=== PATIENT | male | born 1995 | race African-American/Black ===

== ENCOUNTER 2019-02-11 10:00 | Inpatient (IN) | payer OTHER ==
[~2019-02-11] VITALS: Ht 190.5 cm; Wt 86.2 kg
[2019-02-11 12:03] LABS: BASO % 1 % (0-3); EOS # 0.1 x10^3/uL (0.0-0.7); EOS % 2 % (0-3); HEMATOCRIT 44.2 % (39.0-53.0); HEMOGLOBIN 15.2 g/dL (13.0-17.5); LYMPH # 1.4 x10^3/uL (1.0-4.8); LYMPH % 37 % (24-48); MEAN CORPUSCULAR HEMOGLOBIN 29 pg (25-35); MEAN CORPUSCULAR HGB CONC 34 g/dL (31-37); MEAN CORPUSCULAR VOLUME 86 fL (79-100); MONO # 0.4 x10^3/uL (0.0-1.1); MONO % 10 % (0-9); NEUT # 1.9 x10^3/uL (1.8-7.7); NEUT % 51 % (31-73); PLATELET COUNT 164 x10^3/uL (140-400); RED BLOOD COUNT 5.16 x10^6/uL (4.30-5.70); RED CELL DISTRIBUTION WIDTH 13.6 % (11.5-14.5); WHITE BLOOD COUNT 3.8 x10^3/uL (4.0-11.0)
[2019-02-11 12:27] LABS: CALCIUM 9.2 mg/dL (8.5-10.1); CREATININE 1.2 mg/dL (0.7-1.3); GFR 89.3
--- NOTE | 2019-02-11 12:58 | RAD ---
Bilateral upper extremity venous duplex study 02/11/2019 11:24 AM Clinical History: Bilateral upper extremity pain Comparison: None Technique: Using a combination of real time ultrasound imaging and color-flow and pulse Doppler imaging techniques along with graded compression and augmentation, duplex evaluation of the deep venous system of the both upper extremities was performed. Multiple images were obtained. Findings: There is no sonographic evidence of deep venous thrombosis involving the visualized deep venous structures of either upper extremity. Impression: No evidence of deep venous thrombosis involving either upper extremity Electronically signed by: Reinaldo Diallo MD (02/11/2019 12:55 PM) [facility]
--- NOTE | 2019-02-11 13:30 | PHYS DOC ---
Past Medical History Past Medical History: No Pertinent History Past Surgical History: No Surgical History Alcohol Use: None Drug Use: None Adult General Chief Complaint Chief Complaint: UPPER EXTREMITY SWELLING HPI HPI Patient is a 23 year old medical no significant medical history who presents to the ED today complaining of 8 out of 10 bilateral biceps pain, describes the pain as soreness, symptoms began on Saturday after doing a one half hour workout including weights. Patient denies any trauma. He states he was seen at urgent care today and they requested he comes to the ED today for rhabdomyolysis rule out. He states he has not been in the gym for a long time. Review of Systems Review of Systems Constitutional: Denies fever or chills [] Eyes: Denies change in visual acuity, redness, or eye pain [] HENT: Denies nasal congestion or sore throat [] Respiratory: Denies cough or shortness of breath [] Cardiovascular: No additional information not addressed in HPI [] GI: Denies abdominal pain, nausea, vomiting, bloody stools or diarrhea [] : Denies dysuria or hematuria [] Musculoskeletal: Reports bilateral biceps swelling and pain. Integument: Denies rash or skin lesions [] Neurologic: Denies headache, focal weakness or sensory changes [] All other systems were reviewed and found to be within normal limits, except as documented in this note. Current Medications Current Medications Allergies Allergies Allergies Coded Allergies Type Severity Reaction Last Updated Verified No Known Drug Allergies 09/15/15 No Physical Exam Physical Exam Constitutional: Well developed, well nourished, no acute distress, non-toxic appearance. [] HENT: Normocephalic, atraumatic, bilateral external ears normal, oropharynx moist, no oral exudates, nose normal. [] Eyes: PERRLA, EOMI, conjunctiva normal, no discharge. [] Neck: Normal range of motion, no tenderness, supple, no stridor. [] Cardiovascular:Heart rate regular rhythm, no murmur [] Lungs & Thorax: Bilateral breath sounds clear to auscultation [] Abdomen: Bowel sounds normal, soft, no tenderness, no masses, no pulsatile masses. [] Skin: Warm, dry, no erythema, no rash. [] Back: No tenderness, no CVA tenderness. [] Extremities: Bilateral biceps appear muscled. Tenderness on biceps. ROM intact, adequate radial, medial, ulnar sensation to bilateral upper extremities. +2 bilateral radial pulses. Cap refill less than 2 seconds to bilateral UE. Neurologic: Alert and oriented X 3, normal motor function, normal sensory function, no focal deficits noted. [] Psychologic: Affect normal, judgement normal, mood normal. [] Current Patient Data Vital Signs Vital Signs Date Time Temp Pulse Resp B/P (MAP) Pulse Ox O2 Delivery O2 Flow Rate FiO2 02/11/19 10:41 97.9 65 20 141/99 (113) 98 Room Air 97.9 Lab Values Laboratory Tests Test 02/11/19 11:52 White Blood Count 3.8 x10^3/uL (4.0-11.0) L Red Blood Count 5.16 x10^6/uL (4.30-5.70) Hemoglobin 15.2 g/dL (13.0-17.5) Hematocrit 44.2 % (39.0-53.0) Mean Corpuscular Volume 86 fL (79-100) Mean Corpuscular Hemoglobin 29 pg (25-35) Mean Corpuscular Hemoglobin Concent 34 g/dL (31-37) Red Cell Distribution Width 13.6 % (11.5-14.5) Platelet Count 164 x10^3/uL (140-400) Neutrophils (%) (Auto) 51 % (31-73) Lymphocytes (%) (Auto) 37 % (24-48) Monocytes (%) (Auto) 10 % (0-9) H Eosinophils (%) (Auto) 2 % (0-3) Basophils (%) (Auto) 1 % (0-3) Neutrophils # (Auto) 1.9 x10^3/uL (1.8-7.7) Lymphocytes # (Auto) 1.4 x10^3/uL (1.0-4.8) Monocytes # (Auto) 0.4 x10^3/uL (0.0-1.1) Eosinophils # (Auto) 0.1 x10^3/uL (0.0-0.7) Basophils # (Auto) 0.0 x10^3/uL (0.0-0.2) Sodium Level 140 mmol/L (136-145) Potassium Level 4.0 mmol/L (3.5-5.1) Chloride Level 103 mmol/L (98-107) Carbon Dioxide Level 28 mmol/L (21-32) Anion Gap 9 (6-14) Blood Urea Nitrogen 14 mg/dL (8-26) Creatinine 1.2 mg/dL (0.7-1.3) Estimated GFR (Cockcroft-Gault) 89.3 Glucose Level 89 mg/dL (70-99) Calcium Level 9.2 mg/dL (8.5-10.1) Creatine Kinase 62718 U/L (39-308) H Creatine Kinase MB (Mass) 143.1 ng/mL (0.0-3.6) H Creatine Kinase MB Relative Index 0.2 % (0-4) Laboratory Tests 02/11/19 11:52 Laboratory Tests 02/11/19 11:52 EKG EKG [] Radiology/Procedures Radiology/Procedures []PROCEDURE: VENOUS UPPER EXT BILATERAL Bilateral upper extremity venous duplex study 02/11/2019 11:24 AM Clinical History: Bilateral upper extremity pain Comparison: None Technique: Using a combination of real time ultrasound imaging and color-flow and pulse Doppler imaging techniques along with graded compression and augmentation, duplex evaluation of the deep venous system of the both upper extremities was performed. Multiple images were obtained. Findings: There is no sonographic evidence of deep venous thrombosis involving the visualized deep venous structures of either upper extremity. Impression: No evidence of deep venous thrombosis involving either upper extremity Electronically signed by: Reinaldo Cox MD (02/11/2019 12:55 PM) [facility] DICTATED and SIGNED BY: REINALDO COX MD DATE: 02/11/19 7012 Course & Med Decision Making Course & Med Decision Making Pertinent Labs and Imaging studies reviewed. (See chart for details) This is a 23-year-old male patient who presents to the ED today complaining of bilateral biceps pain that began on Saturday after doing a workup cessation. Patient was sent to the ED for rhabdomyolysis rule out. CBC with a WBC of 3.8, BMP with no acute findings, CK 91,555. Patient was started on 2 L of IV fluid in the ED. More IV fluids ordered for admission. Nephrology routine consult placed, we called them in the ED with no response. Consulted with Dr. Silva who accepted patient for admission Lia Disclaimer Dragon Disclaimer This electronic medical record was generated, in whole or in part, using a voice recognition dictation system. Departure Departure Impression: Primary Impression: Rhabdomyolysis Disposition: ADMITTED INPATIENT Condition: STABLE Referrals: MAGI GRAYSON MD (PCP) Problem Qualifiers Primary Impression: Rhabdomyolysis Rhabdomyolysis type: non-traumatic Qualified Codes: M62.82 - Rhabdomyolysis TINA MAURER RULING MACHINE FEEDER Feb 11, 2019 13:30
[2019-02-11] MEDS ORDERED: IV NORMAL SALINE 1000ML BAG 1,000 ML IV ONE ×3 (14:00→15:00)
[2019-02-11] MEDS: IV NORMAL SALINE 1000ML BAG 1,000 ML IV SCH ×2 (14:30→22:59)
[2019-02-11] MEDS ORDERED: ONDANSETRON PF 4 MG/2 ML VIAL. IV PRN (14:30)
[2019-02-11] MEDS ORDERED: ACETAMINOPHEN 325 MG TABLET. PO PRN (14:30)
--- NOTE | 2019-02-11 14:47 | NUR ---
The patient, ROSALBA BLACK, 23 y/o, M admitted by CLAY PIERRE III, DO, was given written information regarding hospital policies, unit procedures and contact persons. Valuables were checked and were left in room. VSS . No c/o pain at this time. Family at bedside. Pt refused to leave contact name and number. Will await for rounding docs.
--- NOTE | 2019-02-11 15:23 | HP ---
ADMIT DATE: 02/11/2019 CHIEF COMPLAINT: Muscle weakness, upper extremity swelling. HISTORY OF PRESENT ILLNESS: The patient is a pleasant, healthy young man who presented with upper extremity swelling and muscle weakness. While in the ER, we did a CPK level. He seems to be in rhabdomyolysis with a CPK level of 91,555. I discussed the case with ER physician. We are going to admit the patient and give him IV fluids and consult Nephrology. PAST MEDICAL HISTORY: Benign. ALLERGIES: None. FAMILY HISTORY: Hypertension. SOCIAL HISTORY: Does not drink, smoke or take drugs. MEDICATIONS: Reviewed, please refer to the MRAD. REVIEW OF SYSTEMS: GENERAL: No history of weight change, weakness or fevers. SKIN: No bruising, hair changes or rashes. EYES: No blurred, double or loss of vision. NOSE AND THROAT: No history of nosebleeds, hoarseness or sore throat. HEART: No history of palpitations, chest pain or shortness of breath on exertion. LUNGS: Denies cough, hemoptysis, wheezing or shortness of breath. GASTROINTESTINAL: Denies changes in appetite, nausea, vomiting, diarrhea or constipation. GENITOURINARY: No history of frequency, urgency, hesitancy or nocturia. NEUROLOGIC: Denies history of numbness, tingling, tremor or weakness. PSYCHIATRIC: No history of panic, anxiety or depression. ENDOCRINE: No history of heat or cold intolerance, polyuria or polydipsia. EXTREMITIES: He complains arm swelling. MUSCULOSKELETAL: He complains of weakness. PHYSICAL EXAMINATION: VITALS: Within normal limits and are stable. GENERAL: No apparent distress. Alert and oriented. HEENT: Head is normocephalic, atraumatic, pupils were equally round and reactive to light and accommodation. NECK: Supple, no JVD, no thyromegaly was noted. LUNGS: Clear to auscultation in all lung hester without rhonchi or wheezing. HEART: RRR, S1, S2 present. Peripheral pulses intact, no obvious murmurs were noted. ABDOMEN: Soft, nontender. Positive bowel sounds no organomegaly, normal bowel sounds. EXTREMITIES: Without any cyanosis, clubbing, or edema. Pedal pulses intact, Homans sign is negative. NEUROLOGIC: Normal speech, normal tone. A & O x3, moves all extremities, no obvious focal deficits. PSYCHIATRIC: Normal affect, normal mood. Stable. SKIN: He has multiple tattoos. VASCULAR: Good capillary refill, neurovascular bundle appears to be intact. [place]: [place] [address]. ASSESSMENT AND PLAN: Rhabdomyolysis. The patient will be admitted. We will give him IV fluids. Consult Nephrology. Check a drug screen, home meds, DVT prophylaxis. CLAY PIERRE DO DR: TRICE/skye JOB#: [id number] / [id number]
[2019-02-11 16:04] VITALS: BP 175/104
[2019-02-11] MEDS: amLODIPine BESYLATE 10 MG TABLET PO SCH (16:39)
[2019-02-11 17:38] LABS: AMPHETAMINE/METHAMPHETAMINE NEG (NEG); BARBITURATES NEG (NEG); BENZODIAZEPINES NEG (NEG); CANNABINOIDS NEG (NEG); COCAINE NEG (NEG); METHADONE NEG (NEG); OPIATES NEG (NEG); PHENCYCLIDINE NEG (NEG)
[2019-02-11 19:00] VITALS: BP 161/89
[2019-02-11 23:00] VITALS: BP 138/76
[2019-02-12 03:00] VITALS: BP 131/77
[2019-02-12 04:09] LABS: BASO % 1 % (0-3); EOS # 0.1 x10^3/uL (0.0-0.7); EOS % 3 % (0-3); HEMATOCRIT 39.5 % (39.0-53.0); HEMOGLOBIN 13.4 g/dL (13.0-17.5); LYMPH # 1.6 x10^3/uL (1.0-4.8); LYMPH % 47 % (24-48); MEAN CORPUSCULAR HEMOGLOBIN 29 pg (25-35); MEAN CORPUSCULAR HGB CONC 34 g/dL (31-37); MEAN CORPUSCULAR VOLUME 86 fL (79-100); MONO # 0.5 x10^3/uL (0.0-1.1); MONO % 14 % (0-9); NEUT # 1.3 x10^3/uL (1.8-7.7); NEUT % 36 % (31-73); PLATELET COUNT 136 x10^3/uL (140-400); RED CELL DISTRIBUTION WIDTH 13.7 % (11.5-14.5); WHITE BLOOD COUNT 3.5 x10^3/uL (4.0-11.0)
[2019-02-12 04:30] LABS: ALBUMIN 3.1 g/dL (3.4-5.0); ALBUMIN/GLOBULIN RATIO 0.9 (1.0-1.7); CALCIUM 8.1 mg/dL (8.5-10.1); CREATININE 1.2 mg/dL (0.7-1.3); GFR 89.3; POTASSIUM 3.8 mmol/L (3.5-5.1); TOTAL BILIRUBIN 0.6 mg/dL (0.2-1.0); TOTAL PROTEIN 6.6 g/dL (6.4-8.2)
[2019-02-12] MEDS: IV NORMAL SALINE 1000ML BAG 1,000 ML IV SCH ×3 (06:29→22:07)
[2019-02-12 07:00] VITALS: BP 137/90
[2019-02-12] MEDS: amLODIPine BESYLATE 10 MG TABLET PO SCH (08:43)
[2019-02-12] MEDS ORDERED: amLODIPine BESYLATE 10 MG TABLET PO SCH (09:00)
[2019-02-12] MEDS ORDERED: cloNIDine HCL 0.1 MG TABLET PO PRN (09:15)
[2019-02-12] MEDS ORDERED: ONDANSETRON PF 4 MG/2 ML VIAL. IV PRN (09:15)
[2019-02-12] MEDS ORDERED: diphenhydrAMINE HCL 25 MG CAPSULE PO PRN (09:15)
[2019-02-12 11:00] VITALS: BP 156/97
--- NOTE | 2019-02-12 11:37 | PDOC2 ---
CONSULT Date of Consult Date of Consult DATE: 02/12/19 TIME: 11:24 Identification/Chief Complaint Chief Complaint " I thought I tore my Biceps as they were hurting" Source Source: Chart review, Patient History of Present Illness Reason for Visit: Patient is a 23 year old male with no significant medical history who presents to the ED complaining of 8 out of 10 bilateral biceps pain, describes the pain as soreness He reports symptoms began on Saturday after doing a one half hour workout including weights. Patient denies any trauma. He states he restarted going to the gym after 3-4 months. He reports good fluid intake. He seda take couple of Ibuprofen for 2 days for the pain. He denies any Creatine/Protein shakes. Denies recreational drug use or excess etoh . Denies any Urinary complaints, states no one told him to save the urine last night but had good UOP . No N/V/D . No CP or SOA Current Problem List Problem List Problems Medical Problems: (1) Rhabdomyolysis Status: Acute Current Medications Current Medications Current Medications Sodium Chloride 1,000 ml @ 1,000 mls/hr 1X ONCE IV Last administered on 02/11/19at 13:52; Start 02/11/19 at 14:00; Stop 02/11/19 at 14:59; Status DC Sodium Chloride 1,000 ml @ 1,000 mls/hr 1X ONCE IV Last administered on 02/11/19at 15:00; Start 02/11/19 at 15:00; Stop 02/11/19 at 15:59; Status DC Ondansetron HCl (Zofran) 4 mg PRN Q8HRS PRN IV NAUSEA/VOMITING; Start 02/11/19 at 14:30; Stop 02/12/19 at 09:11; Status DC Acetaminophen (Tylenol) 650 mg PRN Q4HRS PRN PO FEVER; Start 02/11/19 at 14:30; Stop 02/12/19 at 14:29 Sodium Chloride 1,000 ml @ 1,000 mls/hr 1X ONCE IV Last administered on 02/11/19at 14:30; Start 02/11/19 at 14:30; Stop 02/11/19 at 15:29; Status DC Sodium Chloride 1,000 ml @ 150 mls/hr Q6H40M IV Last administered on 8/1/19at 06:29; Start 02/11/19 at 14:30 Amlodipine Besylate (Norvasc) 10 mg DAILY PO ; Start 02/12/19 at 09:00; Stop 02/12/19 at 09:00; Status DC Amlodipine Besylate (Norvasc) 10 mg DAILY PO Last administered on 02/12/19at 08:43; Start 02/11/19 at 16:45 Ondansetron HCl (Zofran) 4 mg PRN Q6HRS PRN IV NAUSEA/VOMITING; Start 02/12/19 at 09:15 Clonidine HCl (Catapres) 0.1 mg PRN Q1HR PRN PO HYPERTENSION; Start 02/12/19 at 09:15 Diphenhydramine HCl (Benadryl) 25 mg PRN QHS PRN PO INSOMNIA; Start 02/12/19 at 09:15 Active Scripts Active Reported No Known Medications Prior To Admisstion (Info) Each 1 Each MC 1X Allergies Allergies: Coded Allergies: No Known Drug Allergies (Unverified , 09/15/15) ROS Review of System Per HPI Physical Exam Physical Exam GENERAL: No apparent distress. HEENT: OM moist NECK: Supple LUNGS: Clear to auscultation HEART: RRR, S1, S2 present. ABDOMEN: Soft, nontender EXTREMITIES: Without edema. NEURO: grossly normal SKIN: He has multiple tattoos No Devries Vital Signs Vital Signs Date Time Temp Pulse Resp B/P (MAP) Pulse Ox O2 Delivery O2 Flow Rate FiO2 02/12/19 08:43 68 137/90 02/12/19 07:00 97.8 18 98 Room Air 97.8 Assessment & Plan Rhabdomyolysis - Etiology as above , continue IVF, increase rate to 200 ml/hr No UOP has been recorded since admission Strict I/O , Supportive care, avoid nephrotoxins Renal Function Cr 1.2 - may be his baseline Monitor Mid Hypocalcemia- except with rhabdo No indication for replacement currently Transaminitis- LFT's elevated Per primary Discussed A/P with Pt and RN Labs Labs Laboratory Tests Test 02/11/19 11:52 02/11/19 17:16 02/12/19 03:35 White Blood Count 3.8 x10^3/uL (4.0-11.0) 3.5 x10^3/uL (4.0-11.0) Red Blood Count 5.16 x10^6/uL (4.30-5.70) 4.60 x10^6/uL (4.30-5.70) Hemoglobin 15.2 g/dL (13.0-17.5) 13.4 g/dL (13.0-17.5) Hematocrit 44.2 % (39.0-53.0) 39.5 % (39.0-53.0) Mean Corpuscular Volume 86 fL (79-100) 86 fL (79-100) Mean Corpuscular Hemoglobin 29 pg (25-35) 29 pg (25-35) Mean Corpuscular Hemoglobin Concent 34 g/dL (31-37) 34 g/dL (31-37) Red Cell Distribution Width 13.6 % (11.5-14.5) 13.7 % (11.5-14.5) Platelet Count 164 x10^3/uL (140-400) 136 x10^3/uL (140-400) Neutrophils (%) (Auto) 51 % (31-73) 36 % (31-73) Lymphocytes (%) (Auto) 37 % (24-48) 47 % (24-48) Monocytes (%) (Auto) 10 % (0-9) 14 % (0-9) Eosinophils (%) (Auto) 2 % (0-3) 3 % (0-3) Basophils (%) (Auto) 1 % (0-3) 1 % (0-3) Neutrophils # (Auto) 1.9 x10^3/uL (1.8-7.7) 1.3 x10^3/uL (1.8-7.7) Lymphocytes # (Auto) 1.4 x10^3/uL (1.0-4.8) 1.6 x10^3/uL (1.0-4.8) Monocytes # (Auto) 0.4 x10^3/uL (0.0-1.1) 0.5 x10^3/uL (0.0-1.1) Eosinophils # (Auto) 0.1 x10^3/uL (0.0-0.7) 0.1 x10^3/uL (0.0-0.7) Basophils # (Auto) 0.0 x10^3/uL (0.0-0.2) 0.0 x10^3/uL (0.0-0.2) Sodium Level 140 mmol/L (136-145) 143 mmol/L (136-145) Potassium Level 4.0 mmol/L (3.5-5.1) 3.8 mmol/L (3.5-5.1) Chloride Level 103 mmol/L (98-107) 107 mmol/L (98-107) Carbon Dioxide Level 28 mmol/L (21-32) 28 mmol/L (21-32) Anion Gap 9 (6-14) 8 (6-14) Blood Urea Nitrogen 14 mg/dL (8-26) 11 mg/dL (8-26) Creatinine 1.2 mg/dL (0.7-1.3) 1.2 mg/dL (0.7-1.3) Estimated GFR (Cockcroft-Gault) 89.3 89.3 Glucose Level 89 mg/dL (70-99) 97 mg/dL (70-99) Calcium Level 9.2 mg/dL (8.5-10.1) 8.1 mg/dL (8.5-10.1) Creatine Kinase 62145 U/L (39-308) Creatine Kinase MB (Mass) 143.1 ng/mL (0.0-3.6) Creatine Kinase MB Relative Index 0.2 % (0-4) Urine Opiates Screen Neg (NEG) Urine Methadone Screen Neg (NEG) Urine Barbiturates Neg (NEG) Urine Phencyclidine Screen Neg (NEG) Urine Amphetamine/Methamphetamine Neg (NEG) Urine Benzodiazepines Screen Neg (NEG) Urine Cocaine Screen Neg (NEG) Urine Cannabinoids Screen Neg (NEG) Urine Ethyl Alcohol Neg (NEG) BUN/Creatinine Ratio 9 (6-20) Total Bilirubin 0.6 mg/dL (0.2-1.0) Aspartate Amino Transf (AST/SGOT) 507 U/L (15-37) Alanine Aminotransferase (ALT/SGPT) 194 U/L (16-63) Alkaline Phosphatase 83 U/L (46-116) Total Protein 6.6 g/dL (6.4-8.2) Albumin 3.1 g/dL (3.4-5.0) Albumin/Globulin Ratio 0.9 (1.0-1.7) Laboratory Tests Test 02/11/19 11:52 02/11/19 17:16 02/12/19 03:35 White Blood Count 3.8 x10^3/uL (4.0-11.0) 3.5 x10^3/uL (4.0-11.0) Red Blood Count 5.16 x10^6/uL (4.30-5.70) 4.60 x10^6/uL (4.30-5.70) Hemoglobin 15.2 g/dL (13.0-17.5) 13.4 g/dL (13.0-17.5) Hematocrit 44.2 % (39.0-53.0) 39.5 % (39.0-53.0) Mean Corpuscular Volume 86 fL (79-100) 86 fL (79-100) Mean Corpuscular Hemoglobin 29 pg (25-35) 29 pg (25-35) Mean Corpuscular Hemoglobin Concent 34 g/dL (31-37) 34 g/dL (31-37) Red Cell Distribution Width 13.6 % (11.5-14.5) 13.7 % (11.5-14.5) Platelet Count 164 x10^3/uL (140-400) 136 x10^3/uL (140-400) Neutrophils (%) (Auto) 51 % (31-73) 36 % (31-73) Lymphocytes (%) (Auto) 37 % (24-48) 47 % (24-48) Monocytes (%) (Auto) 10 % (0-9) 14 % (0-9) Eosinophils (%) (Auto) 2 % (0-3) 3 % (0-3) Basophils (%) (Auto) 1 % (0-3) 1 % (0-3) Neutrophils # (Auto) 1.9 x10^3/uL (1.8-7.7) 1.3 x10^3/uL (1.8-7.7) Lymphocytes # (Auto) 1.4 x10^3/uL (1.0-4.8) 1.6 x10^3/uL (1.0-4.8) Monocytes # (Auto) 0.4 x10^3/uL (0.0-1.1) 0.5 x10^3/uL (0.0-1.1) Eosinophils # (Auto) 0.1 x10^3/uL (0.0-0.7) 0.1 x10^3/uL (0.0-0.7) Basophils # (Auto) 0.0 x10^3/uL (0.0-0.2) 0.0 x10^3/uL (0.0-0.2) Sodium Level 140 mmol/L (136-145) 143 mmol/L (136-145) Potassium Level 4.0 mmol/L (3.5-5.1) 3.8 mmol/L (3.5-5.1) Chloride Level 103 mmol/L (98-107) 107 mmol/L (98-107) Carbon Dioxide Level 28 mmol/L (21-32) 28 mmol/L (21-32) Anion Gap 9 (6-14) 8 (6-14) Blood Urea Nitrogen 14 mg/dL (8-26) 11 mg/dL (8-26) Creatinine 1.2 mg/dL (0.7-1.3) 1.2 mg/dL (0.7-1.3) Estimated GFR (Cockcroft-Gault) 89.3 89.3 Glucose Level 89 mg/dL (70-99) 97 mg/dL (70-99) Calcium Level 9.2 mg/dL (8.5-10.1) 8.1 mg/dL (8.5-10.1) Creatine Kinase 51281 U/L (39-308) Creatine Kinase MB (Mass) 143.1 ng/mL (0.0-3.6) Creatine Kinase MB Relative Index 0.2 % (0-4) Urine Opiates Screen Neg (NEG) Urine Methadone Screen Neg (NEG) Urine Barbiturates Neg (NEG) Urine Phencyclidine Screen Neg (NEG) Urine Amphetamine/Methamphetamine Neg (NEG) Urine Benzodiazepines Screen Neg (NEG) Urine Cocaine Screen Neg (NEG) Urine Cannabinoids Screen Neg (NEG) Urine Ethyl Alcohol Neg (NEG) BUN/Creatinine Ratio 9 (6-20) Total Bilirubin 0.6 mg/dL (0.2-1.0) Aspartate Amino Transf (AST/SGOT) 507 U/L (15-37) Alanine Aminotransferase (ALT/SGPT) 194 U/L (16-63) Alkaline Phosphatase 83 U/L (46-116) Total Protein 6.6 g/dL (6.4-8.2) Albumin 3.1 g/dL (3.4-5.0) Albumin/Globulin Ratio 0.9 (1.0-1.7) Review All relevant outside records, renal labs, imaging studies, telemetry/EKG's were reviewed. Images Images Bilateral upper extremity venous duplex study 02/11/2019 11:24 AM Clinical History: Bilateral upper extremity pain Comparison: None Technique: Using a combination of real time ultrasound imaging and color-flow and pulse Doppler imaging techniques along with graded compression and augmentation, duplex evaluation of the deep venous system of the both upper extremities was performed. Multiple images were obtained. Findings: There is no sonographic evidence of deep venous thrombosis involving the visualized deep venous structures of either upper extremity. Impression: No evidence of deep venous thrombosis involving either upper extremity REJI ELY MD Feb 12, 2019 11:37
--- NOTE | 2019-02-12 11:41 | PDOC ---
PROGRESS NOTES Chief Complaint Chief Complaint Rhabdomyolysis with CPK greater than 90,000 on admission Biceps pain bilateral Weight lifting Hypertension on Norvasc 10 History of Present Illness History of Present Illness CPK 90,000 and normal saline running at 150 mL an hour So far creatinine okay, complaints of biceps pain and swelling both on bilateral upper extremity He has a left IV peripheral line I agree with renal assessment: up fluids 200 mL an hour Legs look great, multiple tattoos, arms no pain in bilateral lower extremity Plan: check venous Dopplers to rule out anything DVT clot but most likely this is from the inflammation from the severe rhabdomyolysis May start naproxen 500 twice a day I agree with increasing fluid rate to 200 mL an hour Recheck CPK daily Okay for regular diet Discussed with him Vitals Vitals Vital Signs Date Time Temp Pulse Resp B/P (MAP) Pulse Ox O2 Delivery O2 Flow Rate FiO2 02/12/19 08:43 68 137/90 02/12/19 07:00 97.8 18 98 Room Air 97.8 Physical Exam General: Alert, Oriented X3, Cooperative, No acute distress Heart: Regular rate, Normal S1, Normal S2, No murmurs Lungs: Clear Abdomen: Normal bowel sounds, Soft, No tenderness, Other (multiple tattoos bilateral upper extremity) Extremities: No clubbing, No cyanosis, No edema Skin: No rashes, No breakdown, No significant lesion Labs LABS Laboratory Tests Test 02/11/19 11:52 02/11/19 17:16 02/12/19 03:35 White Blood Count 3.8 x10^3/uL (4.0-11.0) 3.5 x10^3/uL (4.0-11.0) Red Blood Count 5.16 x10^6/uL (4.30-5.70) 4.60 x10^6/uL (4.30-5.70) Hemoglobin 15.2 g/dL (13.0-17.5) 13.4 g/dL (13.0-17.5) Hematocrit 44.2 % (39.0-53.0) 39.5 % (39.0-53.0) Mean Corpuscular Volume 86 fL (79-100) 86 fL (79-100) Mean Corpuscular Hemoglobin 29 pg (25-35) 29 pg (25-35) Mean Corpuscular Hemoglobin Concent 34 g/dL (31-37) 34 g/dL (31-37) Red Cell Distribution Width 13.6 % (11.5-14.5) 13.7 % (11.5-14.5) Platelet Count 164 x10^3/uL (140-400) 136 x10^3/uL (140-400) Neutrophils (%) (Auto) 51 % (31-73) 36 % (31-73) Lymphocytes (%) (Auto) 37 % (24-48) 47 % (24-48) Monocytes (%) (Auto) 10 % (0-9) 14 % (0-9) Eosinophils (%) (Auto) 2 % (0-3) 3 % (0-3) Basophils (%) (Auto) 1 % (0-3) 1 % (0-3) Neutrophils # (Auto) 1.9 x10^3/uL (1.8-7.7) 1.3 x10^3/uL (1.8-7.7) Lymphocytes # (Auto) 1.4 x10^3/uL (1.0-4.8) 1.6 x10^3/uL (1.0-4.8) Monocytes # (Auto) 0.4 x10^3/uL (0.0-1.1) 0.5 x10^3/uL (0.0-1.1) Eosinophils # (Auto) 0.1 x10^3/uL (0.0-0.7) 0.1 x10^3/uL (0.0-0.7) Basophils # (Auto) 0.0 x10^3/uL (0.0-0.2) 0.0 x10^3/uL (0.0-0.2) Sodium Level 140 mmol/L (136-145) 143 mmol/L (136-145) Potassium Level 4.0 mmol/L (3.5-5.1) 3.8 mmol/L (3.5-5.1) Chloride Level 103 mmol/L (98-107) 107 mmol/L (98-107) Carbon Dioxide Level 28 mmol/L (21-32) 28 mmol/L (21-32) Anion Gap 9 (6-14) 8 (6-14) Blood Urea Nitrogen 14 mg/dL (8-26) 11 mg/dL (8-26) Creatinine 1.2 mg/dL (0.7-1.3) 1.2 mg/dL (0.7-1.3) Estimated GFR (Cockcroft-Gault) 89.3 89.3 Glucose Level 89 mg/dL (70-99) 97 mg/dL (70-99) Calcium Level 9.2 mg/dL (8.5-10.1) 8.1 mg/dL (8.5-10.1) Creatine Kinase 36818 U/L (39-308) Creatine Kinase MB (Mass) 143.1 ng/mL (0.0-3.6) Creatine Kinase MB Relative Index 0.2 % (0-4) Urine Opiates Screen Neg (NEG) Urine Methadone Screen Neg (NEG) Urine Barbiturates Neg (NEG) Urine Phencyclidine Screen Neg (NEG) Urine Amphetamine/Methamphetamine Neg (NEG) Urine Benzodiazepines Screen Neg (NEG) Urine Cocaine Screen Neg (NEG) Urine Cannabinoids Screen Neg (NEG) Urine Ethyl Alcohol Neg (NEG) BUN/Creatinine Ratio 9 (6-20) Total Bilirubin 0.6 mg/dL (0.2-1.0) Aspartate Amino Transf (AST/SGOT) 507 U/L (15-37) Alanine Aminotransferase (ALT/SGPT) 194 U/L (16-63) Alkaline Phosphatase 83 U/L (46-116) Total Protein 6.6 g/dL (6.4-8.2) Albumin 3.1 g/dL (3.4-5.0) Albumin/Globulin Ratio 0.9 (1.0-1.7) Review of Systems Review of Systems Biceps pain otherwise the rest of ROS 14 point negative Assessment and Plan Assessmemt and Plan Problems Medical Problems: (1) Rhabdomyolysis Status: Acute Comment Review of Relevant I have reviewed the following items kt (where applicable) has been applied. Labs Laboratory Tests Test 02/11/19 11:52 02/11/19 17:16 02/12/19 03:35 White Blood Count 3.8 x10^3/uL (4.0-11.0) 3.5 x10^3/uL (4.0-11.0) Red Blood Count 5.16 x10^6/uL (4.30-5.70) 4.60 x10^6/uL (4.30-5.70) Hemoglobin 15.2 g/dL (13.0-17.5) 13.4 g/dL (13.0-17.5) Hematocrit 44.2 % (39.0-53.0) 39.5 % (39.0-53.0) Mean Corpuscular Volume 86 fL (79-100) 86 fL (79-100) Mean Corpuscular Hemoglobin 29 pg (25-35) 29 pg (25-35) Mean Corpuscular Hemoglobin Concent 34 g/dL (31-37) 34 g/dL (31-37) Red Cell Distribution Width 13.6 % (11.5-14.5) 13.7 % (11.5-14.5) Platelet Count 164 x10^3/uL (140-400) 136 x10^3/uL (140-400) Neutrophils (%) (Auto) 51 % (31-73) 36 % (31-73) Lymphocytes (%) (Auto) 37 % (24-48) 47 % (24-48) Monocytes (%) (Auto) 10 % (0-9) 14 % (0-9) Eosinophils (%) (Auto) 2 % (0-3) 3 % (0-3) Basophils (%) (Auto) 1 % (0-3) 1 % (0-3) Neutrophils # (Auto) 1.9 x10^3/uL (1.8-7.7) 1.3 x10^3/uL (1.8-7.7) Lymphocytes # (Auto) 1.4 x10^3/uL (1.0-4.8) 1.6 x10^3/uL (1.0-4.8) Monocytes # (Auto) 0.4 x10^3/uL (0.0-1.1) 0.5 x10^3/uL (0.0-1.1) Eosinophils # (Auto) 0.1 x10^3/uL (0.0-0.7) 0.1 x10^3/uL (0.0-0.7) Basophils # (Auto) 0.0 x10^3/uL (0.0-0.2) 0.0 x10^3/uL (0.0-0.2) Sodium Level 140 mmol/L (136-145) 143 mmol/L (136-145) Potassium Level 4.0 mmol/L (3.5-5.1) 3.8 mmol/L (3.5-5.1) Chloride Level 103 mmol/L (98-107) 107 mmol/L (98-107) Carbon Dioxide Level 28 mmol/L (21-32) 28 mmol/L (21-32) Anion Gap 9 (6-14) 8 (6-14) Blood Urea Nitrogen 14 mg/dL (8-26) 11 mg/dL (8-26) Creatinine 1.2 mg/dL (0.7-1.3) 1.2 mg/dL (0.7-1.3) Estimated GFR (Cockcroft-Gault) 89.3 89.3 Glucose Level 89 mg/dL (70-99) 97 mg/dL (70-99) Calcium Level 9.2 mg/dL (8.5-10.1) 8.1 mg/dL (8.5-10.1) Creatine Kinase 67129 U/L (39-308) Creatine Kinase MB (Mass) 143.1 ng/mL (0.0-3.6) Creatine Kinase MB Relative Index 0.2 % (0-4) Urine Opiates Screen Neg (NEG) Urine Methadone Screen Neg (NEG) Urine Barbiturates Neg (NEG) Urine Phencyclidine Screen Neg (NEG) Urine Amphetamine/Methamphetamine Neg (NEG) Urine Benzodiazepines Screen Neg (NEG) Urine Cocaine Screen Neg (NEG) Urine Cannabinoids Screen Neg (NEG) Urine Ethyl Alcohol Neg (NEG) BUN/Creatinine Ratio 9 (6-20) Total Bilirubin 0.6 mg/dL (0.2-1.0) Aspartate Amino Transf (AST/SGOT) 507 U/L (15-37) Alanine Aminotransferase (ALT/SGPT) 194 U/L (16-63) Alkaline Phosphatase 83 U/L (46-116) Total Protein 6.6 g/dL (6.4-8.2) Albumin 3.1 g/dL (3.4-5.0) Albumin/Globulin Ratio 0.9 (1.0-1.7) Laboratory Tests Test 02/11/19 11:52 02/11/19 17:16 02/12/19 03:35 White Blood Count 3.8 x10^3/uL (4.0-11.0) 3.5 x10^3/uL (4.0-11.0) Red Blood Count 5.16 x10^6/uL (4.30-5.70) 4.60 x10^6/uL (4.30-5.70) Hemoglobin 15.2 g/dL (13.0-17.5) 13.4 g/dL (13.0-17.5) Hematocrit 44.2 % (39.0-53.0) 39.5 % (39.0-53.0) Mean Corpuscular Volume 86 fL (79-100) 86 fL (79-100) Mean Corpuscular Hemoglobin 29 pg (25-35) 29 pg (25-35) Mean Corpuscular Hemoglobin Concent 34 g/dL (31-37) 34 g/dL (31-37) Red Cell Distribution Width 13.6 % (11.5-14.5) 13.7 % (11.5-14.5) Platelet Count 164 x10^3/uL (140-400) 136 x10^3/uL (140-400) Neutrophils (%) (Auto) 51 % (31-73) 36 % (31-73) Lymphocytes (%) (Auto) 37 % (24-48) 47 % (24-48) Monocytes (%) (Auto) 10 % (0-9) 14 % (0-9) Eosinophils (%) (Auto) 2 % (0-3) 3 % (0-3) Basophils (%) (Auto) 1 % (0-3) 1 % (0-3) Neutrophils # (Auto) 1.9 x10^3/uL (1.8-7.7) 1.3 x10^3/uL (1.8-7.7) Lymphocytes # (Auto) 1.4 x10^3/uL (1.0-4.8) 1.6 x10^3/uL (1.0-4.8) Monocytes # (Auto) 0.4 x10^3/uL (0.0-1.1) 0.5 x10^3/uL (0.0-1.1) Eosinophils # (Auto) 0.1 x10^3/uL (0.0-0.7) 0.1 x10^3/uL (0.0-0.7) Basophils # (Auto) 0.0 x10^3/uL (0.0-0.2) 0.0 x10^3/uL (0.0-0.2) Sodium Level 140 mmol/L (136-145) 143 mmol/L (136-145) Potassium Level 4.0 mmol/L (3.5-5.1) 3.8 mmol/L (3.5-5.1) Chloride Level 103 mmol/L (98-107) 107 mmol/L (98-107) Carbon Dioxide Level 28 mmol/L (21-32) 28 mmol/L (21-32) Anion Gap 9 (6-14) 8 (6-14) Blood Urea Nitrogen 14 mg/dL (8-26) 11 mg/dL (8-26) Creatinine 1.2 mg/dL (0.7-1.3) 1.2 mg/dL (0.7-1.3) Estimated GFR (Cockcroft-Gault) 89.3 89.3 Glucose Level 89 mg/dL (70-99) 97 mg/dL (70-99) Calcium Level 9.2 mg/dL (8.5-10.1) 8.1 mg/dL (8.5-10.1) Creatine Kinase 24748 U/L (39-308) Creatine Kinase MB (Mass) 143.1 ng/mL (0.0-3.6) Creatine Kinase MB Relative Index 0.2 % (0-4) Urine Opiates Screen Neg (NEG) Urine Methadone Screen Neg (NEG) Urine Barbiturates Neg (NEG) Urine Phencyclidine Screen Neg (NEG) Urine Amphetamine/Methamphetamine Neg (NEG) Urine Benzodiazepines Screen Neg (NEG) Urine Cocaine Screen Neg (NEG) Urine Cannabinoids Screen Neg (NEG) Urine Ethyl Alcohol Neg (NEG) BUN/Creatinine Ratio 9 (6-20) Total Bilirubin 0.6 mg/dL (0.2-1.0) Aspartate Amino Transf (AST/SGOT) 507 U/L (15-37) Alanine Aminotransferase (ALT/SGPT) 194 U/L (16-63) Alkaline Phosphatase 83 U/L (46-116) Total Protein 6.6 g/dL (6.4-8.2) Albumin 3.1 g/dL (3.4-5.0) Albumin/Globulin Ratio 0.9 (1.0-1.7) Medications Current Medications Sodium Chloride 1,000 ml @ 1,000 mls/hr 1X ONCE IV Last administered on 02/11/19at 13:52; Start 02/11/19 at 14:00; Stop 02/11/19 at 14:59; Status DC Sodium Chloride 1,000 ml @ 1,000 mls/hr 1X ONCE IV Last administered on 02/11/19at 15:00; Start 02/11/19 at 15:00; Stop 02/11/19 at 15:59; Status DC Ondansetron HCl (Zofran) 4 mg PRN Q8HRS PRN IV NAUSEA/VOMITING; Start 02/11/19 at 14:30; Stop 02/12/19 at 09:11; Status DC Acetaminophen (Tylenol) 650 mg PRN Q4HRS PRN PO FEVER; Start 02/11/19 at 14:30; Stop 02/12/19 at 14:29 Sodium Chloride 1,000 ml @ 1,000 mls/hr 1X ONCE IV Last administered on 02/11/19at 14:30; Start 02/11/19 at 14:30; Stop 02/11/19 at 15:29; Status DC Sodium Chloride 1,000 ml @ 200 mls/hr Q5H IV Last administered on 02/12/19at 06:29; Start 02/11/19 at 14:30 Amlodipine Besylate (Norvasc) 10 mg DAILY PO ; Start 02/12/19 at 09:00; Stop 02/12/19 at 09:00; Status DC Amlodipine Besylate (Norvasc) 10 mg DAILY PO Last administered on 02/12/19at 08:43; Start 02/11/19 at 16:45 Ondansetron HCl (Zofran) 4 mg PRN Q6HRS PRN IV NAUSEA/VOMITING; Start 02/12/19 at 09:15 Clonidine HCl (Catapres) 0.1 mg PRN Q1HR PRN PO HYPERTENSION; Start 02/12/19 at 09:15 Diphenhydramine HCl (Benadryl) 25 mg PRN QHS PRN PO INSOMNIA; Start 02/12/19 at 09:15 Active Scripts Active Reported No Known Medications Prior To Admisstion (Info) Each 1 Each 1X Vitals/I & O Vital Sign - Last 24 Hours 02/11/19 02/11/19 02/11/19 02/11/19 14:00 14:30 15:33 16:04 Temp 97.6 97.6 Pulse 56 51 52 Resp 16 16 B/P (MAP) 179/107 (131) 164/103 (123) 175/104 (127) Pulse Ox 99 100 O2 Delivery Room Air Room Air Room Air Room Air 02/11/19 02/11/19 02/11/19 02/12/19 16:39 19:00 23:00 03:00 Temp 97.9 97.7 98.3 97.9 97.7 98.3 Pulse 52 67 64 54 Resp 18 18 18 B/P (MAP) 175/104 161/89 (113) 138/76 (96) 131/77 (95) Pulse Ox 99 96 96 O2 Delivery Room Air Room Air Room Air 02/12/19 02/12/19 07:00 08:43 Temp 97.8 97.8 Pulse 68 68 Resp 18 B/P (MAP) 137/90 (106) 137/90 Pulse Ox 98 O2 Delivery Room Air Intake and Output 02/11/19 02/11/19 02/12/19 15:00 23:00 07:00 Intake Total 930 ml 220 ml Balance 930 ml 220 ml SANDRA ONTIVEROS MD Feb 12, 2019 11:41
[2019-02-12] MEDS: NAPROXEN 500 MG TABLET PO SCH ×2 (14:42→22:06)
[2019-02-12 15:00] VITALS: BP 127/84
[2019-02-12 19:00] VITALS: BP 144/81
[2019-02-12 22:32] VITALS: BP 133/88
[2019-02-13] MEDS: IV NORMAL SALINE 1000ML BAG 1,000 ML IV SCH ×6 (02:33→23:15)
[2019-02-13 03:00] VITALS: BP 128/73
[2019-02-13 06:32] VITALS: BP 126/69
[2019-02-13] MEDS: amLODIPine BESYLATE 10 MG TABLET PO SCH (08:50)
[2019-02-13] MEDS: NAPROXEN 500 MG TABLET PO SCH (08:50)
--- NOTE | 2019-02-13 08:55 | NUR ---
Upon discussing with the patient regarding his strict I & O status is was discovered the patient did have a urinal he had been using overnight that was in the bathroom, but not had been emptied or recorded. That patient stated that his total urine output for the night was in the urinal, so this nurse dumped and recorded the 1000mL at 0800 on 02/13/2019.
--- NOTE | 2019-02-13 09:22 | RAD ---
RIGHT UPPER EXTREMITY VENOUS DUPLEX EXAMINATION Clinical indications: Right upper extremity pain and swelling status post post work up. Findings: Duplex sonography (including sanders scale evaluation and color flow and waveform spectral analysis) of the inferior aspect of the right internal jugular vein was performed. Duplex sonography (including sanders scale evaluation and color flow and waveform spectral analysis) of the right subclavian vein as far as it could be visualized prior to it's descent underneath the medial aspect of the clavicle was performed. Duplex sonography (including sanders scale evaluation and color flow and waveform spectral analysis) of the right axillary, brachial, basilic, cephalic, ulnar and radial veins was performed. One of the brachial veins is noncompressible due to occlusive thrombosis. The other veins are patent and compressible. IMPRESSION: There is a new finding of occlusive thrombosis of one of the brachial veins since the study the day before. This was discussed with Dr. Jain at 9:17 AM on February 13, 2019. A follow-up sonogram in a few days may be helpful to ensure no proximal progression. LEFT UPPER EXTREMITY VENOUS DUPLEX EXAMINATION Clinical indications: Left upper extremity pain and swelling status post work out. Findings: Duplex sonography (including sanders scale evaluation and color flow and waveform spectral analysis) of the inferior aspect of the left internal jugular vein was performed. Duplex sonography (including sanders scale evaluation and color flow and waveform spectral analysis) of the left subclavian vein as far as it could be visualized prior to it's descent underneath the medial aspect of the clavicle was performed. Duplex sonography (including sanders scale evaluation and color flow and waveform spectral analysis) of the left axillary, brachial, basilic, cephalic, ulnar and radial veins was performed. One of the brachial veins is noncompressible and thrombosed. The other veins are compressible and patent. IMPRESSION: New finding of occlusive thrombosis of one of the brachial veins. This was discussed with Dr. Jain at 9:17 AM on February 13, 2019. A follow-up sonogram in a few days may be helpful to ensure no proximal progression. Electronically signed by: Rikki Brooks MD (02/13/2019 9:19 AM) [facility]
--- NOTE | 2019-02-13 09:42 | PDOC ---
PROGRESS NOTES Chief Complaint Chief Complaint Rhabdomyolysis with CPK greater than 90,000 on admission NEW Occlusive thrombosis left brachial vein Bilateral upper extremity swelling-better with elevation Biceps pain bilateral Weight lifting Hypertension on Norvasc 10 - controlled MIld transaminitis - non alcoholic History of Present Illness History of Present Illness IV fluids running at 200 mL per hour CPK down to 30,000 from 90,000 But ultrasound both arms yesterday I ordered discussed with radiologist, new occlusive brachial thrombus on the left Patient denies family or personal history of clots Swelling seems to be better when he elevates both arms He does not have any history of clots or bleeding disorder LFTS mildly high Plan Eliquis 10 twice a day for 7 days and 5 twice a day for 3 months Interval sonogram maybe 1 months down the line make sure no proximal progression as discussed with radiologist JC naproxen since I'm starting blood thinners Continue IV fluids at 200 mL an hour and recheck CPK tomorrow ELevate both arms to help with swelling Hopefully home tomorrow Recheck LFTS with tmr's labs Vitals Vitals Vital Signs Date Time Temp Pulse Resp B/P (MAP) Pulse Ox O2 Delivery O2 Flow Rate FiO2 02/13/19 08:50 77 126/69 02/13/19 06:32 97.7 17 97 Room Air 97.7 Physical Exam General: Alert, Oriented X3, Cooperative, No acute distress Heart: Regular rate, Normal S1, Normal S2, No murmurs Lungs: Clear Abdomen: Normal bowel sounds, Soft, No tenderness, Other (multiple tattoos bilateral upper extremity) Extremities: No clubbing, No cyanosis, No edema Skin: No rashes, No breakdown, No significant lesion Labs LABS Laboratory Tests Test 02/13/19 06:15 Creatine Kinase 95987 U/L (39-308) Review of Systems Review of Systems Biceps pain, the rest of ROS 14 point negative Assessment and Plan Assessmemt and Plan Problems Medical Problems: (1) Rhabdomyolysis Status: Acute Comment Review of Relevant I have reviewed the following items kt (where applicable) has been applied. Labs Laboratory Tests Test 02/11/19 11:52 02/11/19 17:16 02/12/19 03:35 02/13/19 06:15 White Blood Count 3.8 x10^3/uL (4.0-11.0) 3.5 x10^3/uL (4.0-11.0) Red Blood Count 5.16 x10^6/uL (4.30-5.70) 4.60 x10^6/uL (4.30-5.70) Hemoglobin 15.2 g/dL (13.0-17.5) 13.4 g/dL (13.0-17.5) Hematocrit 44.2 % (39.0-53.0) 39.5 % (39.0-53.0) Mean Corpuscular Volume 86 fL (79-100) 86 fL (79-100) Mean Corpuscular Hemoglobin 29 pg (25-35) 29 pg (25-35) Mean Corpuscular Hemoglobin Concent 34 g/dL (31-37) 34 g/dL (31-37) Red Cell Distribution Width 13.6 % (11.5-14.5) 13.7 % (11.5-14.5) Platelet Count 164 x10^3/uL (140-400) 136 x10^3/uL (140-400) Neutrophils (%) (Auto) 51 % (31-73) 36 % (31-73) Lymphocytes (%) (Auto) 37 % (24-48) 47 % (24-48) Monocytes (%) (Auto) 10 % (0-9) 14 % (0-9) Eosinophils (%) (Auto) 2 % (0-3) 3 % (0-3) Basophils (%) (Auto) 1 % (0-3) 1 % (0-3) Neutrophils # (Auto) 1.9 x10^3/uL (1.8-7.7) 1.3 x10^3/uL (1.8-7.7) Lymphocytes # (Auto) 1.4 x10^3/uL (1.0-4.8) 1.6 x10^3/uL (1.0-4.8) Monocytes # (Auto) 0.4 x10^3/uL (0.0-1.1) 0.5 x10^3/uL (0.0-1.1) Eosinophils # (Auto) 0.1 x10^3/uL (0.0-0.7) 0.1 x10^3/uL (0.0-0.7) Basophils # (Auto) 0.0 x10^3/uL (0.0-0.2) 0.0 x10^3/uL (0.0-0.2) Sodium Level 140 mmol/L (136-145) 143 mmol/L (136-145) Potassium Level 4.0 mmol/L (3.5-5.1) 3.8 mmol/L (3.5-5.1) Chloride Level 103 mmol/L (98-107) 107 mmol/L (98-107) Carbon Dioxide Level 28 mmol/L (21-32) 28 mmol/L (21-32) Anion Gap 9 (6-14) 8 (6-14) Blood Urea Nitrogen 14 mg/dL (8-26) 11 mg/dL (8-26) Creatinine 1.2 mg/dL (0.7-1.3) 1.2 mg/dL (0.7-1.3) Estimated GFR (Cockcroft-Gault) 89.3 89.3 Glucose Level 89 mg/dL (70-99) 97 mg/dL (70-99) Calcium Level 9.2 mg/dL (8.5-10.1) 8.1 mg/dL (8.5-10.1) Creatine Kinase 68061 U/L (39-308) 11657 U/L (39-308) Creatine Kinase MB (Mass) 143.1 ng/mL (0.0-3.6) Creatine Kinase MB Relative Index 0.2 % (0-4) Urine Opiates Screen Neg (NEG) Urine Methadone Screen Neg (NEG) Urine Barbiturates Neg (NEG) Urine Phencyclidine Screen Neg (NEG) Urine Amphetamine/Methamphetamine Neg (NEG) Urine Benzodiazepines Screen Neg (NEG) Urine Cocaine Screen Neg (NEG) Urine Cannabinoids Screen Neg (NEG) Urine Ethyl Alcohol Neg (NEG) BUN/Creatinine Ratio 9 (6-20) Total Bilirubin 0.6 mg/dL (0.2-1.0) Aspartate Amino Transf (AST/SGOT) 507 U/L (15-37) Alanine Aminotransferase (ALT/SGPT) 194 U/L (16-63) Alkaline Phosphatase 83 U/L (46-116) Total Protein 6.6 g/dL (6.4-8.2) Albumin 3.1 g/dL (3.4-5.0) Albumin/Globulin Ratio 0.9 (1.0-1.7) Laboratory Tests Test 02/13/19 06:15 Creatine Kinase 75654 U/L (39-308) Medications Current Medications Sodium Chloride 1,000 ml @ 1,000 mls/hr 1X ONCE IV Last administered on 02/11/19at 13:52; Start 02/11/19 at 14:00; Stop 02/11/19 at 14:59; Status DC Sodium Chloride 1,000 ml @ 1,000 mls/hr 1X ONCE IV Last administered on 02/11/19at 15:00; Start 02/11/19 at 15:00; Stop 02/11/19 at 15:59; Status DC Ondansetron HCl (Zofran) 4 mg PRN Q8HRS PRN IV NAUSEA/VOMITING; Start 02/11/19 at 14:30; Stop 02/12/19 at 09:11; Status DC Acetaminophen (Tylenol) 650 mg PRN Q4HRS PRN PO FEVER; Start 02/11/19 at 14:30; Stop 02/12/19 at 14:29; Status DC Sodium Chloride 1,000 ml @ 1,000 mls/hr 1X ONCE IV Last administered on 02/11/19at 14:30; Start 02/11/19 at 14:30; Stop 02/11/19 at 15:29; Status DC Sodium Chloride 1,000 ml @ 200 mls/hr Q5H IV Last administered on 02/12/19at 08:00; Start 02/11/19 at 14:30 Amlodipine Besylate (Norvasc) 10 mg DAILY PO ; Start 02/12/19 at 09:00; Stop 02/12/19 at 09:00; Status DC Amlodipine Besylate (Norvasc) 10 mg DAILY PO Last administered on 02/13/19at 08:50; Start 02/11/19 at 16:45 Ondansetron HCl (Zofran) 4 mg PRN Q6HRS PRN IV NAUSEA/VOMITING; Start 02/12/19 at 09:15 Clonidine HCl (Catapres) 0.1 mg PRN Q1HR PRN PO HYPERTENSION; Start 02/12/19 at 09:15 Diphenhydramine HCl (Benadryl) 25 mg PRN QHS PRN PO INSOMNIA; Start 02/12/19 at 09:15 Naproxen (Naprosyn) 500 mg BID PO Last administered on 02/13/19at 08:50; Start 02/12/19 at 11:45 Active Scripts Active Reported No Known Medications Prior To Admisstion (Info) Each 1 Each 1X Vitals/I & O Vital Sign - Last 24 Hours 02/12/19 02/12/19 02/12/19 02/12/19 11:00 15:00 19:00 20:00 Temp 97.9 98.1 98.1 97.9 98.1 98.1 Pulse 68 78 63 Resp 16 18 18 B/P (MAP) 156/97 (116) 127/84 (98) 144/81 (102) Pulse Ox 97 95 100 O2 Delivery Room Air Room Air Room Air Room Air 02/12/19 02/13/19 02/13/19 02/13/19 22:32 03:00 06:32 08:50 Temp 97.8 97.7 97.7 97.8 97.7 97.7 Pulse 70 69 77 77 Resp 17 16 17 B/P (MAP) 133/88 (103) 128/73 (91) 126/69 (88) 126/69 Pulse Ox 96 97 97 O2 Delivery Room Air Room Air Room Air Intake and Output 02/12/19 02/12/19 02/13/19 14:59 22:59 06:59 Intake Total 50 ml 1000 ml 1900 ml Output Total 800 ml 950 ml Balance -750 ml 50 ml 1900 ml SANDRA ONTIVEROS MD Feb 13, 2019 09:42
[2019-02-13 11:00] VITALS: BP 156/91
[2019-02-13] MEDS: APIXABAN 5 MG TABLET. PO SCH ×2 (11:10→20:52)
--- NOTE | 2019-02-13 12:25 | NUR ---
SW following pt for dc needs. Chart reviewed, pt is from home with family. No SW needs noted at this time.
--- NOTE | 2019-02-13 13:25 | PDOC ---
SUBJECTIVE ROS No complaints OBJECTIVE Vital Signs Vital Signs Date Time Temp Pulse Resp B/P (MAP) Pulse Ox O2 Delivery O2 Flow Rate FiO2 02/13/19 11:00 98.4 68 16 156/91 (112) 96 Room Air 98.4 I & 0 Intake and Output 02/13/19 07:00 Intake Total 2950 ml Output Total 1750 ml Balance 1200 ml Intake Oral 950 ml IV Total 2000 ml Output Urine Total 1750 ml # Voids 1 PHYSICAL EXAM Physical Exam GENERAL: No apparent distress. HEENT: OM moist NECK: Supple LUNGS: Clear to auscultation HEART: RRR, S1, S2 present. ABDOMEN: Soft, nontender EXTREMITIES: Without edema. 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 Started on Eliquis by primary Discussed A/P with Pt and RN COMMENT/RELEVANT DATA Meds Current Medications Medications (Trade) Dose Ordered Sig/Jaciel Start Time Stop Time Status Last Admin Dose Admin Acetaminophen (Tylenol) 650 mg PRN Q4HRS PRN 02/11/19 14:30 02/12/19 14:29 DC Amlodipine Besylate (Norvasc) 10 mg DAILY 02/11/19 16:45 02/13/19 08:50 10 MG Apixaban (Eliquis) 5 mg BID 02/20/19 09:00 Clonidine HCl (Catapres) 0.1 mg PRN Q1HR PRN 02/12/19 09:15 Diphenhydramine HCl (Benadryl) 25 mg PRN QHS PRN 02/12/19 09:15 Info (Anti-Coagulation Monitoring By Pharmacy) 1 each PRN DAILY PRN 02/13/19 09:45 Naproxen (Naprosyn) 500 mg BID 02/12/19 11:45 02/13/19 09:40 DC 02/13/19 08:50 500 MG Ondansetron HCl (Zofran) 4 mg PRN Q6HRS PRN 02/12/19 09:15 Sodium Chloride 1,000 ml @ 200 mls/hr Q5H 02/11/19 14:30 02/12/19 08:00 200 MLS/HR Lab Laboratory Tests Test 02/13/19 06:15 Creatine Kinase [id number] U/L ([id number]) Results All relevant outside records, renal labs, imaging studies, telemetry/EKG's were reviewed. REJI ELY MD Feb 13, 2019 13:25
[2019-02-13 16:58] VITALS: BP 135/72
[2019-02-13 19:00] VITALS: BP 152/86
[2019-02-13 23:00] VITALS: BP 151/93
[2019-02-14 03:00] VITALS: BP 135/65
[2019-02-14] MEDS: IV NORMAL SALINE 1000ML BAG 1,000 ML IV SCH ×4 (04:14→19:30)
[2019-02-14 07:49] LABS: CALCIUM 8.4 mg/dL (8.5-10.1); CREATININE 1.1 mg/dL (0.7-1.3); GFR 98.7; POTASSIUM 4.1 mmol/L (3.5-5.1)
[2019-02-14 07:55] LABS: ALBUMIN 3.2 g/dL (3.4-5.0); DIRECT BILIRUBIN 0.1 mg/dL (0.0-0.2); TOTAL BILIRUBIN 0.4 mg/dL (0.2-1.0); TOTAL PROTEIN 6.6 g/dL (6.4-8.2)
[2019-02-14 08:00] VITALS: BP 150/91
[2019-02-14] MEDS: amLODIPine BESYLATE 10 MG TABLET PO SCH (09:28)
[2019-02-14] MEDS: APIXABAN 5 MG TABLET. PO SCH ×2 (09:29→20:42)
[2019-02-14] MEDS: ANTI-COAG MONITOR BY PHARMACY. MC PRN (10:51)
[2019-02-14 11:00] VITALS: BP 155/95
[2019-02-14] MEDS ORDERED: APIX5TAB PO (11:01)
[2019-02-14] MEDS ORDERED: AMLO10TA8 PO (11:01)
--- NOTE | 2019-02-14 11:26 | PDOC ---
PROGRESS NOTES Chief Complaint Chief Complaint Rhabdomyolysis with CPK greater than 90,000 on admission NEW Occlusive thrombosis left brachial vein Bilateral upper extremity swelling-better with elevation Biceps pain bilateral Weight lifting Hypertension on Norvasc 10 - controlled MIld transaminitis - non alcoholic History of Present Illness History of Present Illness IV fluids running at 200 mL per hour CPK down to 16K from 30,000 from 90,000 But ultrasound both arms yesterday I ordered discussed with radiologist, new occlusive brachial thrombus on the left Patient denies family or personal history of clots Swelling seems to be better when he elevates both arms He does not have any history of clots or bleeding disorder LFTS mildly high- getting better now Dw family too Renal wants CPK lower, so hold dc today Plan HOld dc COnt IVF at 200cc Eliquis 10 twice a day for 7 days and 5 twice a day for 3 months Interval sonogram maybe 1 months down the line make sure no proximal progression as discussed with radiologist JC naproxen since I'm starting blood thinners Continue IV fluids at 200 mL an hour and recheck CPK tomorrow ELevate both arms to help with swelling Hopefully home tomorrow Recheck LFTS with tmr's labs Vitals Vitals Vital Signs Date Time Temp Pulse Resp B/P (MAP) Pulse Ox O2 Delivery O2 Flow Rate FiO2 02/14/19 11:00 97.9 66 18 155/95 (115) 97 Room Air 97.9 Physical Exam General: Alert, Oriented X3, Cooperative, No acute distress Heart: Regular rate, Normal S1, Normal S2, No murmurs Lungs: Clear Abdomen: Normal bowel sounds, Soft, No tenderness, Other (multiple tattoos bilateral upper extremity) Extremities: No clubbing, No cyanosis, No edema Skin: No rashes, No breakdown, No significant lesion Labs LABS Laboratory Tests Test 02/14/19 06:17 Sodium Level 144 mmol/L (136-145) Potassium Level 4.1 mmol/L (3.5-5.1) Chloride Level 108 mmol/L (98-107) Carbon Dioxide Level 25 mmol/L (21-32) Anion Gap 11 (6-14) Blood Urea Nitrogen 12 mg/dL (8-26) Creatinine 1.1 mg/dL (0.7-1.3) Estimated GFR (Cockcroft-Gault) 98.7 Glucose Level 86 mg/dL (70-99) Calcium Level 8.4 mg/dL (8.5-10.1) Total Bilirubin 0.4 mg/dL (0.2-1.0) Direct Bilirubin 0.1 mg/dL (0.0-0.2) Aspartate Amino Transf (AST/SGOT) 345 U/L (15-37) Alanine Aminotransferase (ALT/SGPT) 189 U/L (16-63) Alkaline Phosphatase 76 U/L (46-116) Creatine Kinase 16745 U/L (39-308) Total Protein 6.6 g/dL (6.4-8.2) Albumin 3.2 g/dL (3.4-5.0) Review of Systems Review of Systems A 14 point ROS was completed with the following noted as positive: Other systems reviewed and negative. \CONSTITUTIONAL: No fever or chills EYES: No recent changes SKIN: No rash or itching CARDIOVASCULAR: No chest pain, syncope, palpitations, or edema RESPIRATORY: No SOB or cough GASTROINTESTINAL: No nausea, vomiting or abdominal pain NEUROLOGICAL: No headaches or weakness ENDOCRINE: No cold or heat intolerance GENITOURINARY: No urgency or frequency of urination MUSCULOSKELETAL: No back pain or joint pain LYMPHATICS: No enlarged lymph nodes PSYCHIATRIC: No anxiety or depression Assessment and Plan Assessmemt and Plan Problems Medical Problems: (1) Rhabdomyolysis Status: Acute Comment Review of Relevant I have reviewed the following items kt (where applicable) has been applied. Labs Laboratory Tests Test 02/13/19 06:15 02/14/19 06:17 Creatine Kinase 65118 U/L (39-308) 93195 U/L (39-308) Sodium Level 144 mmol/L (136-145) Potassium Level 4.1 mmol/L (3.5-5.1) Chloride Level 108 mmol/L (98-107) Carbon Dioxide Level 25 mmol/L (21-32) Anion Gap 11 (6-14) Blood Urea Nitrogen 12 mg/dL (8-26) Creatinine 1.1 mg/dL (0.7-1.3) Estimated GFR (Cockcroft-Gault) 98.7 Glucose Level 86 mg/dL (70-99) Calcium Level 8.4 mg/dL (8.5-10.1) Total Bilirubin 0.4 mg/dL (0.2-1.0) Direct Bilirubin 0.1 mg/dL (0.0-0.2) Aspartate Amino Transf (AST/SGOT) 345 U/L (15-37) Alanine Aminotransferase (ALT/SGPT) 189 U/L (16-63) Alkaline Phosphatase 76 U/L (46-116) Total Protein 6.6 g/dL (6.4-8.2) Albumin 3.2 g/dL (3.4-5.0) Laboratory Tests Test 02/14/19 06:17 Sodium Level 144 mmol/L (136-145) Potassium Level 4.1 mmol/L (3.5-5.1) Chloride Level 108 mmol/L (98-107) Carbon Dioxide Level 25 mmol/L (21-32) Anion Gap 11 (6-14) Blood Urea Nitrogen 12 mg/dL (8-26) Creatinine 1.1 mg/dL (0.7-1.3) Estimated GFR (Cockcroft-Gault) 98.7 Glucose Level 86 mg/dL (70-99) Calcium Level 8.4 mg/dL (8.5-10.1) Total Bilirubin 0.4 mg/dL (0.2-1.0) Direct Bilirubin 0.1 mg/dL (0.0-0.2) Aspartate Amino Transf (AST/SGOT) 345 U/L (15-37) Alanine Aminotransferase (ALT/SGPT) 189 U/L (16-63) Alkaline Phosphatase 76 U/L (46-116) Creatine Kinase 38785 U/L (39-308) Total Protein 6.6 g/dL (6.4-8.2) Albumin 3.2 g/dL (3.4-5.0) Medications Current Medications Sodium Chloride 1,000 ml @ 1,000 mls/hr 1X ONCE IV Last administered on 02/11/19at 13:52; Start 02/11/19 at 14:00; Stop 02/11/19 at 14:59; Status DC Sodium Chloride 1,000 ml @ 1,000 mls/hr 1X ONCE IV Last administered on 02/11/19at 15:00; Start 02/11/19 at 15:00; Stop 02/11/19 at 15:59; Status DC Ondansetron HCl (Zofran) 4 mg PRN Q8HRS PRN IV NAUSEA/VOMITING; Start 02/11/19 at 14:30; Stop 02/12/19 at 09:11; Status DC Acetaminophen (Tylenol) 650 mg PRN Q4HRS PRN PO FEVER; Start 02/11/19 at 14:30; Stop 02/12/19 at 14:29; Status DC Sodium Chloride 1,000 ml @ 1,000 mls/hr 1X ONCE IV Last administered on 02/11/19at 14:30; Start 02/11/19 at 14:30; Stop 02/11/19 at 15:29; Status DC Sodium Chloride 1,000 ml @ 200 mls/hr Q5H IV Last administered on 02/14/19at 09:29; Start 02/11/19 at 14:30 Amlodipine Besylate (Norvasc) 10 mg DAILY PO ; Start 02/12/19 at 09:00; Stop 02/12/19 at 09:00; Status DC Amlodipine Besylate (Norvasc) 10 mg DAILY PO Last administered on 02/14/19at 09:28; Start 02/11/19 at 16:45 Ondansetron HCl (Zofran) 4 mg PRN Q6HRS PRN IV NAUSEA/VOMITING; Start 02/12/19 at 09:15 Clonidine HCl (Catapres) 0.1 mg PRN Q1HR PRN PO HYPERTENSION; Start 02/12/19 at 09:15 Diphenhydramine HCl (Benadryl) 25 mg PRN QHS PRN PO INSOMNIA; Start 02/12/19 at 09:15 Naproxen (Naprosyn) 500 mg BID PO Last administered on 02/13/19at 08:50; Start 02/12/19 at 11:45; Stop 02/13/19 at 09:40; Status DC Apixaban (Eliquis) 10 mg BID PO Last administered on 02/14/19at 09:29; Start 02/13/19 at 10:00; Stop 02/19/19 at 21:01 Info (Anti-Coagulation Monitoring By Pharmacy) 1 each PRN DAILY PRN MC SEE COMMENTS Last administered on 02/14/19at 10:51; Start 02/13/19 at 09:45 Apixaban (Eliquis) 5 mg BID PO ; Start 02/20/19 at 09:00 Active Scripts Active Amlodipine Besylate 10 Mg Tablet 10 Mg PO DAILY 30 Days Eliquis (Apixaban) 5 Mg Tablet 10 Mg PO BID 7 Days Eliquis (Apixaban) 5 Mg Tablet 5 Mg PO BID 90 Days Reported No Known Medications Prior To Admisstion (Info) Each 1 Each 1X Vitals/I & O Vital Sign - Last 24 Hours 02/13/19 02/13/19 02/13/19 02/14/19 16:58 19:00 23:00 03:00 Temp 98.6 98.4 98.0 98.0 98.6 98.4 98.0 98.0 Pulse 70 71 58 67 Resp 16 18 14 15 B/P (MAP) 135/72 (93) 152/86 (108) 151/93 (112) 135/65 (88) Pulse Ox 98 97 98 96 O2 Delivery Room Air Room Air Room Air Room Air 02/14/19 02/14/19 02/14/19 02/14/19 08:00 08:00 09:28 11:00 Temp 98.1 97.9 98.1 97.9 Pulse 65 65 66 Resp 19 18 B/P (MAP) 150/91 (110) 150/91 155/95 (115) Pulse Ox 96 97 O2 Delivery Room Air Room Air Room Air Intake and Output 02/13/19 02/13/19 02/14/19 14:59 22:59 06:59 Intake Total 1430 ml 1300 ml Output Total 2900 ml 1975 ml 1800 ml Balance -1470 ml -675 ml -1800 ml SANDRA ONTIVEROS MD Feb 14, 2019 11:26
--- NOTE | 2019-02-14 11:26 | PDOC ---
PROGRESS NOTES Subjective Subjective SEEN IN FOLLOW UP OF RHABDOMYOLYSIS Objective Objective Vital Signs Date Time Temp Pulse Resp B/P (MAP) Pulse Ox O2 Delivery O2 Flow Rate FiO2 02/14/19 11:00 97.9 66 18 155/95 (115) 97 Room Air 97.9 Intake and Output 02/14/19 06:59 Intake Total 2730 ml Output Total 6675 ml Balance -3945 ml Intake Oral 730 ml Other 2000 ml Output Urine Total 6675 ml Physical Exam Abdomen: Normal bowel sounds, Soft, No tenderness, No hepatosplenomegaly, No masses Heart: Regular rate, Normal S1, Normal S2, No murmurs, Gallops Extremities: No clubbing, No cyanosis, No edema, Normal pulses, No tenderness/swelling General: Alert, Oriented X3, Cooperative, No acute distress Lungs: Clear to auscultation, Normal air movement Psych/Mental Status: Mental status NL, Mood NL Diagnosis RENAL FAILURE: Other (RHABDOMYOLYSIS) Assessment Assessment Problems Medical Problems: (1) Rhabdomyolysis Status: Acute Plan Plan of Care CONT IVF AND TREND LAB. WOULD LIKE TO SEE CK < 5000 Comment Review of Relevant I have reviewed the following items kt (where applicable) has been applied. Labs Laboratory Tests Test 02/13/19 06:15 02/14/19 06:17 Creatine Kinase 96845 U/L (39-308) 91783 U/L (39-308) Sodium Level 144 mmol/L (136-145) Potassium Level 4.1 mmol/L (3.5-5.1) Chloride Level 108 mmol/L (98-107) Carbon Dioxide Level 25 mmol/L (21-32) Anion Gap 11 (6-14) Blood Urea Nitrogen 12 mg/dL (8-26) Creatinine 1.1 mg/dL (0.7-1.3) Estimated GFR (Cockcroft-Gault) 98.7 Glucose Level 86 mg/dL (70-99) Calcium Level 8.4 mg/dL (8.5-10.1) Total Bilirubin 0.4 mg/dL (0.2-1.0) Direct Bilirubin 0.1 mg/dL (0.0-0.2) Aspartate Amino Transf (AST/SGOT) 345 U/L (15-37) Alanine Aminotransferase (ALT/SGPT) 189 U/L (16-63) Alkaline Phosphatase 76 U/L (46-116) Total Protein 6.6 g/dL (6.4-8.2) Albumin 3.2 g/dL (3.4-5.0) Laboratory Tests Test 02/14/19 06:17 Sodium Level 144 mmol/L (136-145) Potassium Level 4.1 mmol/L (3.5-5.1) Chloride Level 108 mmol/L (98-107) Carbon Dioxide Level 25 mmol/L (21-32) Anion Gap 11 (6-14) Blood Urea Nitrogen 12 mg/dL (8-26) Creatinine 1.1 mg/dL (0.7-1.3) Estimated GFR (Cockcroft-Gault) 98.7 Glucose Level 86 mg/dL (70-99) Calcium Level 8.4 mg/dL (8.5-10.1) Total Bilirubin 0.4 mg/dL (0.2-1.0) Direct Bilirubin 0.1 mg/dL (0.0-0.2) Aspartate Amino Transf (AST/SGOT) 345 U/L (15-37) Alanine Aminotransferase (ALT/SGPT) 189 U/L (16-63) Alkaline Phosphatase 76 U/L (46-116) Creatine Kinase 65200 U/L (39-308) Total Protein 6.6 g/dL (6.4-8.2) Albumin 3.2 g/dL (3.4-5.0) Medications Current Medications Sodium Chloride 1,000 ml @ 1,000 mls/hr 1X ONCE IV Last administered on 02/11/19at 13:52; Start 02/11/19 at 14:00; Stop 02/11/19 at 14:59; Status DC Sodium Chloride 1,000 ml @ 1,000 mls/hr 1X ONCE IV Last administered on 02/11/19at 15:00; Start 02/11/19 at 15:00; Stop 02/11/19 at 15:59; Status DC Ondansetron HCl (Zofran) 4 mg PRN Q8HRS PRN IV NAUSEA/VOMITING; Start 02/11/19 at 14:30; Stop 02/12/19 at 09:11; Status DC Acetaminophen (Tylenol) 650 mg PRN Q4HRS PRN PO FEVER; Start 02/11/19 at 14:30; Stop 02/12/19 at 14:29; Status DC Sodium Chloride 1,000 ml @ 1,000 mls/hr 1X ONCE IV Last administered on 02/11/19at 14:30; Start 02/11/19 at 14:30; Stop 02/11/19 at 15:29; Status DC Sodium Chloride 1,000 ml @ 200 mls/hr Q5H IV Last administered on 02/14/19at 09:29; Start 02/11/19 at 14:30 Amlodipine Besylate (Norvasc) 10 mg DAILY PO ; Start 02/12/19 at 09:00; Stop 02/12/19 at 09:00; Status DC Amlodipine Besylate (Norvasc) 10 mg DAILY PO Last administered on 02/14/19at 09:28; Start 02/11/19 at 16:45 Ondansetron HCl (Zofran) 4 mg PRN Q6HRS PRN IV NAUSEA/VOMITING; Start 02/12/19 at 09:15 Clonidine HCl (Catapres) 0.1 mg PRN Q1HR PRN PO HYPERTENSION; Start 02/12/19 at 09:15 Diphenhydramine HCl (Benadryl) 25 mg PRN QHS PRN PO INSOMNIA; Start 02/12/19 at 09:15 Naproxen (Naprosyn) 500 mg BID PO Last administered on 02/13/19at 08:50; Start 02/12/19 at 11:45; Stop 02/13/19 at 09:40; Status DC Apixaban (Eliquis) 10 mg BID PO Last administered on 02/14/19at 09:29; Start 02/13/19 at 10:00; Stop 02/19/19 at 21:01 Info (Anti-Coagulation Monitoring By Pharmacy) 1 each PRN DAILY PRN MC SEE COMMENTS Last administered on 02/14/19at 10:51; Start 02/13/19 at 09:45 Apixaban (Eliquis) 5 mg BID PO ; Start 02/20/19 at 09:00 Active Scripts Active Amlodipine Besylate 10 Mg Tablet 10 Mg PO DAILY 30 Days Eliquis (Apixaban) 5 Mg Tablet 10 Mg PO BID 7 Days Eliquis (Apixaban) 5 Mg Tablet 5 Mg PO BID 90 Days Reported No Known Medications Prior To Admisstion (Info) Each 1 Each MC 1X Vitals/I & O Vital Sign - Last 24 Hours 8/2/19 8/2/19 8/2/19 8/3/19 16:58 19:00 23:00 03:00 Temp 98.6 98.4 98.0 98.0 98.6 98.4 98.0 98.0 Pulse 70 71 58 67 Resp 16 18 14 15 B/P (MAP) 135/72 (93) 152/86 (108) 151/93 (112) 135/65 (88) Pulse Ox 98 97 98 96 O2 Delivery Room Air Room Air Room Air Room Air 02/14/19 02/14/19 02/14/19 02/14/19 08:00 08:00 09:28 11:00 Temp 98.1 97.9 98.1 97.9 Pulse 65 65 66 Resp 19 18 B/P (MAP) 150/91 (110) 150/91 155/95 (115) Pulse Ox 96 97 O2 Delivery Room Air Room Air Room Air Intake and Output 02/13/19 02/13/19 02/14/19 14:59 22:59 06:59 Intake Total 1430 ml 1300 ml Output Total 2900 ml 1975 ml 1800 ml Balance -1470 ml -675 ml -1800 ml MARIBELL LEYVA MD Feb 14, 2019 11:25
[2019-02-14 15:00] VITALS: BP 152/86
[2019-02-14 19:00] VITALS: BP 152/82
[2019-02-14 23:00] VITALS: BP 148/94
[2019-02-15] VITALS (7 sets, daily range): BP systolic 116–155; BP diastolic 66–106
[2019-02-15] MEDS: IV NORMAL SALINE 1000ML BAG 1,000 ML IV SCH ×6 (00:50→23:13)
[2019-02-15 09:17] LABS: ALBUMIN 3.3 g/dL (3.4-5.0); ALBUMIN/GLOBULIN RATIO 0.9 (1.0-1.7); CALCIUM 8.5 mg/dL (8.5-10.1); CREATININE 1.2 mg/dL (0.7-1.3); GFR 89.3; TOTAL BILIRUBIN 0.4 mg/dL (0.2-1.0); TOTAL PROTEIN 6.9 g/dL (6.4-8.2)
[2019-02-15] MEDS: amLODIPine BESYLATE 10 MG TABLET PO SCH (09:27)
[2019-02-15] MEDS: APIXABAN 5 MG TABLET. PO SCH ×2 (09:27→20:43)
--- NOTE | 2019-02-15 10:14 | PDOC ---
PROGRESS NOTES Chief Complaint Chief Complaint Rhabdomyolysis with CPK greater than 90,000 on admission NEW Occlusive thrombosis left brachial vein - OAC x 3 mos pls Bilateral upper extremity swelling-better with elevation Biceps pain bilateral Weight lifting Hypertension on Norvasc 10 - controlled MIld transaminitis - non alcoholic History of Present Illness History of Present Illness IV fluids running at 200 mL per hour CPK down to 16K from 30,000 from 90,000 RPT CPK TODAY IS PENDING Good UO US shows NEW LEFT DVT, no priors Hypercoag pending I recommended 3 mos OAC - all on chart - eliquis covered by insurance RENAL held my dc , advised lower CPK levels before dcing PLAn: FF up levels today COnt NS 200 ELiquis x 3 mos RPt sono in 2 mos - all on chart NOrvasc - also yoandy med on chart LFTS trending down nicely (non alcoholic) Wait for renal rounds Dw RN Mars Vitals Vitals Vital Signs Date Time Temp Pulse Resp B/P (MAP) Pulse Ox O2 Delivery O2 Flow Rate FiO2 02/15/19 09:27 74 132/87 02/15/19 08:30 Room Air 02/15/19 07:00 98.2 16 97 98.2 Physical Exam General: Alert, Oriented X3, Cooperative, No acute distress Heart: Regular rate, Normal S1, Normal S2, No murmurs, Gallops Lungs: Clear Abdomen: Normal bowel sounds, Soft, No tenderness, No hepatosplenomegaly, No masses Extremities: No clubbing, No cyanosis, No edema, Normal pulses, No tenderness/swelling Skin: No rashes, No breakdown, No significant lesion Labs LABS Laboratory Tests Test 02/15/19 07:53 Sodium Level 144 mmol/L (136-145) Potassium Level 4.0 mmol/L (3.5-5.1) Chloride Level 108 mmol/L (98-107) Carbon Dioxide Level 26 mmol/L (21-32) Anion Gap 10 (6-14) Blood Urea Nitrogen 10 mg/dL (8-26) Creatinine 1.2 mg/dL (0.7-1.3) Estimated GFR (Cockcroft-Gault) 89.3 BUN/Creatinine Ratio 8 (6-20) Glucose Level 83 mg/dL (70-99) Calcium Level 8.5 mg/dL (8.5-10.1) Total Bilirubin 0.4 mg/dL (0.2-1.0) Aspartate Amino Transf (AST/SGOT) 246 U/L (15-37) Alanine Aminotransferase (ALT/SGPT) 184 U/L (16-63) Alkaline Phosphatase 81 U/L (46-116) Total Protein 6.9 g/dL (6.4-8.2) Albumin 3.3 g/dL (3.4-5.0) Albumin/Globulin Ratio 0.9 (1.0-1.7) Review of Systems Review of Systems A 14 point ROS was completed with the following noted as positive: Other systems reviewed and negative. \CONSTITUTIONAL: No fever or chills EYES: No recent changes SKIN: No rash or itching CARDIOVASCULAR: No chest pain, syncope, palpitations, or edema RESPIRATORY: No SOB or cough GASTROINTESTINAL: No nausea, vomiting or abdominal pain NEUROLOGICAL: No headaches or weakness ENDOCRINE: No cold or heat intolerance GENITOURINARY: No urgency or frequency of urination MUSCULOSKELETAL: No back pain or joint pain LYMPHATICS: No enlarged lymph nodes PSYCHIATRIC: No anxiety or depression Assessment and Plan Assessmemt and Plan Problems Medical Problems: (1) Rhabdomyolysis Status: Acute Comment Review of Relevant I have reviewed the following items kt (where applicable) has been applied. Labs Laboratory Tests Test 02/14/19 06:17 02/15/19 07:53 Sodium Level 144 mmol/L (136-145) 144 mmol/L (136-145) Potassium Level 4.1 mmol/L (3.5-5.1) 4.0 mmol/L (3.5-5.1) Chloride Level 108 mmol/L (98-107) 108 mmol/L (98-107) Carbon Dioxide Level 25 mmol/L (21-32) 26 mmol/L (21-32) Anion Gap 11 (6-14) 10 (6-14) Blood Urea Nitrogen 12 mg/dL (8-26) 10 mg/dL (8-26) Creatinine 1.1 mg/dL (0.7-1.3) 1.2 mg/dL (0.7-1.3) Estimated GFR (Cockcroft-Gault) 98.7 89.3 Glucose Level 86 mg/dL (70-99) 83 mg/dL (70-99) Calcium Level 8.4 mg/dL (8.5-10.1) 8.5 mg/dL (8.5-10.1) Total Bilirubin 0.4 mg/dL (0.2-1.0) 0.4 mg/dL (0.2-1.0) Direct Bilirubin 0.1 mg/dL (0.0-0.2) Aspartate Amino Transf (AST/SGOT) 345 U/L (15-37) 246 U/L (15-37) Alanine Aminotransferase (ALT/SGPT) 189 U/L (16-63) 184 U/L (16-63) Alkaline Phosphatase 76 U/L (46-116) 81 U/L (46-116) Creatine Kinase 64162 U/L (39-308) Total Protein 6.6 g/dL (6.4-8.2) 6.9 g/dL (6.4-8.2) Albumin 3.2 g/dL (3.4-5.0) 3.3 g/dL (3.4-5.0) BUN/Creatinine Ratio 8 (6-20) Albumin/Globulin Ratio 0.9 (1.0-1.7) Laboratory Tests Test 02/15/19 07:53 Sodium Level 144 mmol/L (136-145) Potassium Level 4.0 mmol/L (3.5-5.1) Chloride Level 108 mmol/L (98-107) Carbon Dioxide Level 26 mmol/L (21-32) Anion Gap 10 (6-14) Blood Urea Nitrogen 10 mg/dL (8-26) Creatinine 1.2 mg/dL (0.7-1.3) Estimated GFR (Cockcroft-Gault) 89.3 BUN/Creatinine Ratio 8 (6-20) Glucose Level 83 mg/dL (70-99) Calcium Level 8.5 mg/dL (8.5-10.1) Total Bilirubin 0.4 mg/dL (0.2-1.0) Aspartate Amino Transf (AST/SGOT) 246 U/L (15-37) Alanine Aminotransferase (ALT/SGPT) 184 U/L (16-63) Alkaline Phosphatase 81 U/L (46-116) Total Protein 6.9 g/dL (6.4-8.2) Albumin 3.3 g/dL (3.4-5.0) Albumin/Globulin Ratio 0.9 (1.0-1.7) Medications Current Medications Sodium Chloride 1,000 ml @ 1,000 mls/hr 1X ONCE IV Last administered on 02/11/19at 13:52; Start 02/11/19 at 14:00; Stop 02/11/19 at 14:59; Status DC Sodium Chloride 1,000 ml @ 1,000 mls/hr 1X ONCE IV Last administered on 02/11/19at 15:00; Start 02/11/19 at 15:00; Stop 02/11/19 at 15:59; Status DC Ondansetron HCl (Zofran) 4 mg PRN Q8HRS PRN IV NAUSEA/VOMITING; Start 02/11/19 at 14:30; Stop 02/12/19 at 09:11; Status DC Acetaminophen (Tylenol) 650 mg PRN Q4HRS PRN PO FEVER; Start 02/11/19 at 14:30; Stop 02/12/19 at 14:29; Status DC Sodium Chloride 1,000 ml @ 1,000 mls/hr 1X ONCE IV Last administered on 02/11/19at 14:30; Start 02/11/19 at 14:30; Stop 02/11/19 at 15:29; Status DC Sodium Chloride 1,000 ml @ 200 mls/hr Q5H IV Last administered on 02/15/19at 06:20; Start 02/11/19 at 14:30 Amlodipine Besylate (Norvasc) 10 mg DAILY PO ; Start 02/12/19 at 09:00; Stop 02/12/19 at 09:00; Status DC Amlodipine Besylate (Norvasc) 10 mg DAILY PO Last administered on 02/15/19at 09:27; Start 02/11/19 at 16:45 Ondansetron HCl (Zofran) 4 mg PRN Q6HRS PRN IV NAUSEA/VOMITING; Start 02/12/19 at 09:15 Clonidine HCl (Catapres) 0.1 mg PRN Q1HR PRN PO HYPERTENSION; Start 02/12/19 at 09:15 Diphenhydramine HCl (Benadryl) 25 mg PRN QHS PRN PO INSOMNIA; Start 02/12/19 at 09:15 Naproxen (Naprosyn) 500 mg BID PO Last administered on 02/13/19at 08:50; Start at 11:45; Stop 02/13/19 at 09:40; Status DC Apixaban (Eliquis) 10 mg BID PO Last administered on 02/15/19at 09:27; Start at 10:00; Stop 02/19/19 at 21:01 Info (Anti-Coagulation Monitoring By Pharmacy) 1 each PRN DAILY PRN MC SEE COMMENTS Last administered on 02/14/19at 10:51; Start 02/13/19 at 09:45 Apixaban (Eliquis) 5 mg BID PO ; Start 02/20/19 at 09:00 Active Scripts Active Amlodipine Besylate 10 Mg Tablet 10 Mg PO DAILY 30 Days Eliquis (Apixaban) 5 Mg Tablet 10 Mg PO BID 7 Days Eliquis (Apixaban) 5 Mg Tablet 5 Mg PO BID 90 Days Reported No Known Medications Prior To Admisstion (Info) Each 1 Each MC 1X Vitals/I & O Vital Sign - Last 24 Hours 02/14/19 02/14/19 02/14/19 02/14/19 11:00 15:00 19:00 23:00 Temp 97.9 98.1 98.4 97.6 97.9 98.1 98.4 97.6 Pulse 66 64 72 Resp 18 19 18 12 B/P (MAP) 155/95 (115) 152/86 (108) 152/82 (105) 148/94 (112) Pulse Ox 97 97 95 97 O2 Delivery Room Air Room Air Room Air Room Air 02/15/19 02/15/19 02/15/19 02/15/19 03:00 07:00 08:30 09:27 Temp 97.7 98.2 97.7 98.2 Pulse 67 74 74 Resp 13 16 B/P (MAP) 128/70 (89) 132/87 (102) 132/87 Pulse Ox 97 97 O2 Delivery Room Air Room Air Room Air Intake and Output 02/14/19 02/14/19 02/15/19 15:00 23:00 07:00 Intake Total 360 ml 300 ml 400 ml Output Total 2700 ml 1850 ml 250 ml Balance -2340 ml -1550 ml 150 ml SANDRA ONTIVEROS MD Feb 15, 2019 10:14
[2019-02-15] MEDS: ANTI-COAG MONITOR BY PHARMACY. MC PRN (10:20)
[2019-02-16 03:00] VITALS: BP 156/91
[2019-02-16] MEDS: IV NORMAL SALINE 1000ML BAG 1,000 ML IV SCH ×4 (04:18→20:36)
[2019-02-16 07:25] VITALS: BP 147/93
[2019-02-16 07:39] LABS: ALBUMIN 3.2 g/dL (3.4-5.0); ALBUMIN/GLOBULIN RATIO 0.8 (1.0-1.7); CALCIUM 8.5 mg/dL (8.5-10.1); CREATININE 1.1 mg/dL (0.7-1.3); GFR 98.7; POTASSIUM 3.5 mmol/L (3.5-5.1); TOTAL BILIRUBIN 0.3 mg/dL (0.2-1.0)
[2019-02-16] MEDS: APIXABAN 5 MG TABLET. PO SCH ×2 (08:08→20:42)
[2019-02-16] MEDS: amLODIPine BESYLATE 10 MG TABLET PO SCH (08:08)
--- NOTE | 2019-02-16 09:55 | PDOC ---
PROGRESS NOTES Chief Complaint Chief Complaint Rhabdomyolysis with CPK greater than 90,000 on admission NEW Occlusive thrombosis left brachial vein - OAC x 3 mos plus Bilateral upper extremity swelling-better with elevation Biceps pain bilateral Weight lifting Hypertension on Norvasc 10 - controlled MIld transaminitis - non alcoholic CONT IVF AND TREND LAB. WOULD LIKE TO SEE CK < 5000 38 min pt exam, chart review, > 50% History of Present Illness History of Present Illness IV fluids running at 200 mL per hour CPK down to 16K from 30,000 from 90,000 RPT CPK TODAY IS PENDING Good UO US shows NEW LEFT DVT, no priors Hypercoag pending I recommended 3 mos OAC - all on chart - eliquis covered by insurance RENAL held my dc , advised lower CPK levels before dcing PLAn: FF up levels today COnt NS 200 ELiquis x 3 mos RPt sono in 2 mos - all on chart NOrvasc - also yoandy med on chart LFTS trending down nicely (non alcoholic) Wait for renal rounds John RN Mars Vitals Vitals Vital Signs Date Time Temp Pulse Resp B/P (MAP) Pulse Ox O2 Delivery O2 Flow Rate FiO2 02/16/19 08:08 60 147/93 02/16/19 07:25 98.1 14 99 Room Air 98.1 Physical Exam General: Alert, Oriented X3, Cooperative, No acute distress Heart: Regular rate, Normal S1, Normal S2, No murmurs, Gallops Lungs: Clear Abdomen: Normal bowel sounds, Soft, No tenderness, No hepatosplenomegaly, No masses Extremities: No clubbing, No cyanosis, No edema, Normal pulses, No tenderness/swelling Skin: No rashes, No breakdown, No significant lesion Labs LABS Laboratory Tests Test 02/16/19 06:11 Sodium Level 143 mmol/L (136-145) Potassium Level 3.5 mmol/L (3.5-5.1) Chloride Level 107 mmol/L (98-107) Carbon Dioxide Level 25 mmol/L (21-32) Anion Gap 11 (6-14) Blood Urea Nitrogen 11 mg/dL (8-26) Creatinine 1.1 mg/dL (0.7-1.3) Estimated GFR (Cockcroft-Gault) 98.7 BUN/Creatinine Ratio 10 (6-20) Glucose Level 91 mg/dL (70-99) Calcium Level 8.5 mg/dL (8.5-10.1) Total Bilirubin 0.3 mg/dL (0.2-1.0) Aspartate Amino Transf (AST/SGOT) 178 U/L (15-37) Alanine Aminotransferase (ALT/SGPT) 171 U/L (16-63) Alkaline Phosphatase 82 U/L (46-116) Creatine Kinase 7397 U/L (39-308) Total Protein 7.0 g/dL (6.4-8.2) Albumin 3.2 g/dL (3.4-5.0) Albumin/Globulin Ratio 0.8 (1.0-1.7) Assessment and Plan Assessmemt and Plan Problems Medical Problems: (1) Rhabdomyolysis Status: Acute Comment Review of Relevant I have reviewed the following items kt (where applicable) has been applied. Labs Laboratory Tests Test 02/15/19 07:53 02/16/19 06:11 Sodium Level 144 mmol/L (136-145) 143 mmol/L (136-145) Potassium Level 4.0 mmol/L (3.5-5.1) 3.5 mmol/L (3.5-5.1) Chloride Level 108 mmol/L (98-107) 107 mmol/L (98-107) Carbon Dioxide Level 26 mmol/L (21-32) 25 mmol/L (21-32) Anion Gap 10 (6-14) 11 (6-14) Blood Urea Nitrogen 10 mg/dL (8-26) 11 mg/dL (8-26) Creatinine 1.2 mg/dL (0.7-1.3) 1.1 mg/dL (0.7-1.3) Estimated GFR (Cockcroft-Gault) 89.3 98.7 BUN/Creatinine Ratio 8 (6-20) 10 (6-20) Glucose Level 83 mg/dL (70-99) 91 mg/dL (70-99) Calcium Level 8.5 mg/dL (8.5-10.1) 8.5 mg/dL (8.5-10.1) Total Bilirubin 0.4 mg/dL (0.2-1.0) 0.3 mg/dL (0.2-1.0) Aspartate Amino Transf (AST/SGOT) 246 U/L (15-37) 178 U/L (15-37) Alanine Aminotransferase (ALT/SGPT) 184 U/L (16-63) 171 U/L (16-63) Alkaline Phosphatase 81 U/L (46-116) 82 U/L (46-116) Creatine Kinase 69366 U/L (39-308) 7397 U/L (39-308) Total Protein 6.9 g/dL (6.4-8.2) 7.0 g/dL (6.4-8.2) Albumin 3.3 g/dL (3.4-5.0) 3.2 g/dL (3.4-5.0) Albumin/Globulin Ratio 0.9 (1.0-1.7) 0.8 (1.0-1.7) Laboratory Tests Test 02/16/19 06:11 Sodium Level 143 mmol/L (136-145) Potassium Level 3.5 mmol/L (3.5-5.1) Chloride Level 107 mmol/L (98-107) Carbon Dioxide Level 25 mmol/L (21-32) Anion Gap 11 (6-14) Blood Urea Nitrogen 11 mg/dL (8-26) Creatinine 1.1 mg/dL (0.7-1.3) Estimated GFR (Cockcroft-Gault) 98.7 BUN/Creatinine Ratio 10 (6-20) Glucose Level 91 mg/dL (70-99) Calcium Level 8.5 mg/dL (8.5-10.1) Total Bilirubin 0.3 mg/dL (0.2-1.0) Aspartate Amino Transf (AST/SGOT) 178 U/L (15-37) Alanine Aminotransferase (ALT/SGPT) 171 U/L (16-63) Alkaline Phosphatase 82 U/L (46-116) Creatine Kinase 7397 U/L (39-308) Total Protein 7.0 g/dL (6.4-8.2) Albumin 3.2 g/dL (3.4-5.0) Albumin/Globulin Ratio 0.8 (1.0-1.7) Medications Current Medications Sodium Chloride 1,000 ml @ 1,000 mls/hr 1X ONCE IV Last administered on 02/11/19at 13:52; Start 02/11/19 at 14:00; Stop 02/11/19 at 14:59; Status DC Sodium Chloride 1,000 ml @ 1,000 mls/hr 1X ONCE IV Last administered on 02/11/19at 15:00; Start 02/11/19 at 15:00; Stop 02/11/19 at 15:59; Status DC Ondansetron HCl (Zofran) 4 mg PRN Q8HRS PRN IV NAUSEA/VOMITING; Start 02/11/19 at 14:30; Stop 02/12/19 at 09:11; Status DC Acetaminophen (Tylenol) 650 mg PRN Q4HRS PRN PO FEVER; Start 02/11/19 at 14:30; Stop 02/12/19 at 14:29; Status DC Sodium Chloride 1,000 ml @ 1,000 mls/hr 1X ONCE IV Last administered on 02/11/19at 14:30; Start 02/11/19 at 14:30; Stop 02/11/19 at 15:29; Status DC Sodium Chloride 1,000 ml @ 200 mls/hr Q5H IV Last administered on 02/16/19at 04:18; Start 02/11/19 at 14:30 Amlodipine Besylate (Norvasc) 10 mg DAILY PO ; Start 02/12/19 at 09:00; Stop 02/12/19 at 09:00; Status DC Amlodipine Besylate (Norvasc) 10 mg DAILY PO Last administered on 02/16/19at 08:08; Start 02/11/19 at 16:45 Ondansetron HCl (Zofran) 4 mg PRN Q6HRS PRN IV NAUSEA/VOMITING; Start 02/12/19 at 09:15 Clonidine HCl (Catapres) 0.1 mg PRN Q1HR PRN PO HYPERTENSION; Start 02/12/19 at 09:15 Diphenhydramine HCl (Benadryl) 25 mg PRN QHS PRN PO INSOMNIA; Start 02/12/19 at 09:15 Naproxen (Naprosyn) 500 mg BID PO Last administered on 02/13/19at 08:50; Start 02/12/19 at 11:45; Stop 02/13/19 at 09:40; Status DC Apixaban (Eliquis) 10 mg BID PO Last administered on 02/16/19at 08:08; Start 02/13/19 at 10:00; Stop 02/19/19 at 21:01 Info (Anti-Coagulation Monitoring By Pharmacy) 1 each PRN DAILY PRN MC SEE COMMENTS Last administered on 02/15/19at 10:20; Start 02/13/19 at 09:45 Apixaban (Eliquis) 5 mg BID PO ; Start 02/20/19 at 09:00 Active Scripts Active Amlodipine Besylate 10 Mg Tablet 10 Mg PO DAILY 30 Days Eliquis (Apixaban) 5 Mg Tablet 10 Mg PO BID 7 Days Eliquis (Apixaban) 5 Mg Tablet 5 Mg PO BID 90 Days Reported No Known Medications Prior To Admisstion (Info) Each 1 Each MC 1X Vitals/I & O Vital Sign - Last 24 Hours 02/15/19 02/15/19 02/15/19 02/15/19 11:28 13:42 15:09 19:00 Temp 98.3 98.7 97.9 98.3 98.7 97.9 Pulse 61 63 77 80 Resp 16 18 13 B/P (MAP) 155/106 (122) 116/66 (83) 125/76 (92) 127/73 (91) Pulse Ox 97 98 96 97 O2 Delivery Room Air Room Air Room Air Room Air 02/15/19 02/16/19 02/16/19 02/16/19 23:00 03:00 07:25 08:08 Temp 98.2 97.6 98.1 98.2 97.6 98.1 Pulse 79 70 60 60 Resp 15 12 14 B/P (MAP) 141/74 (96) 156/91 (112) 147/93 (111) 147/93 Pulse Ox 97 95 99 O2 Delivery Room Air Room Air Room Air Intake and Output 02/15/19 02/15/19 02/16/19 14:59 22:59 06:59 Intake Total 200 ml 2800 ml Output Total 1825 ml 1475 ml 1325 ml Balance -1825 ml -1275 ml 1475 ml SYLVIE OSULLIVAN MD Feb 16, 2019 09:55
[2019-02-16 11:00] VITALS: BP 139/90
[2019-02-16] MEDS: ANTI-COAG MONITOR BY PHARMACY. MC PRN (11:18)
[2019-02-16 15:09] VITALS: BP 138/79
--- NOTE | 2019-02-16 15:28 | NUR ---
SW following pt. Discussed with RN, Labs still have not improved. No SW needs at this time.
--- NOTE | 2019-02-16 15:35 | PDOC ---
SUBJECTIVE ROS No complaints OBJECTIVE Vital Signs Vital Signs Date Time Temp Pulse Resp B/P (MAP) Pulse Ox O2 Delivery O2 Flow Rate FiO2 02/16/19 15:09 98.0 60 14 138/79 (98) 99 Room Air 98.0 I & 0 Intake and Output 02/16/19 07:00 Intake Total 3000 ml Output Total 4625 ml Balance -1625 ml Intake Oral 1000 ml IV Total 2000 ml Output Urine Total 4625 ml PHYSICAL EXAM Physical Exam GENERAL: No apparent distress. HEENT: OM moist NECK: Supple LUNGS: Clear to auscultation HEART: RRR, S1, S2 present. ABDOMEN: Soft, nontender EXTREMITIES: Without edema. NEURO: grossly normal SKIN: He has multiple tattoos No Devries DIAGNOSIS/ASSESSMENT Assessment & Plan Rhabdomyolysis - Continue IVF, Good uop Renal Function Cr 1.2 - may be his baseline Transaminitis- Improving LFT's Per primary New occlusive brachial thrombus on the left On Eliquis Discussed A/P with Pt and RN COMMENT/RELEVANT DATA Meds Current Medications Medications (Trade) Dose Ordered Sig/Jaciel Start Time Stop Time Status Last Admin Dose Admin Acetaminophen (Tylenol) 650 mg PRN Q4HRS PRN 02/11/19 14:30 02/12/19 14:29 DC Amlodipine Besylate (Norvasc) 10 mg DAILY 02/11/19 16:45 02/16/19 08:08 10 MG Apixaban (Eliquis) 5 mg BID 02/20/19 09:00 Clonidine HCl (Catapres) 0.1 mg PRN Q1HR PRN 02/12/19 09:15 Diphenhydramine HCl (Benadryl) 25 mg PRN QHS PRN 02/12/19 09:15 Info (Anti-Coagulation Monitoring By Pharmacy) 1 each PRN DAILY PRN 02/13/19 09:45 02/16/19 11:18 1 EACH Naproxen (Naprosyn) 500 mg BID 02/12/19 11:45 02/13/19 09:40 DC 02/13/19 08:50 500 MG Ondansetron HCl (Zofran) 4 mg PRN Q6HRS PRN 02/12/19 09:15 Sodium Chloride 1,000 ml @ 200 mls/hr Q5H 02/11/19 14:30 02/16/19 15:06 200 MLS/HR Lab Laboratory Tests Test 02/16/19 06:11 Sodium Level 143 mmol/L (136-145) Potassium Level 3.5 mmol/L (3.5-5.1) Chloride Level 107 mmol/L (98-107) Carbon Dioxide Level 25 mmol/L (21-32) Anion Gap 11 (6-14) Blood Urea Nitrogen 11 mg/dL (8-26) Creatinine 1.1 mg/dL (0.7-1.3) Estimated GFR (Cockcroft-Gault) 98.7 BUN/Creatinine Ratio 10 (6-20) Glucose Level 91 mg/dL (70-99) Calcium Level 8.5 mg/dL (8.5-10.1) Total Bilirubin 0.3 mg/dL (0.2-1.0) Aspartate Amino Transf (AST/SGOT) 178 U/L (15-37) Alanine Aminotransferase (ALT/SGPT) 171 U/L (16-63) Alkaline Phosphatase 82 U/L (46-116) Creatine Kinase 7397 U/L (39-308) Total Protein 7.0 g/dL (6.4-8.2) Albumin 3.2 g/dL (3.4-5.0) Albumin/Globulin Ratio 0.8 (1.0-1.7) Results All relevant outside records, renal labs, imaging studies, telemetry/EKG's were reviewed. REJI ELY MD Feb 16, 2019 15:35
[2019-02-16 19:00] VITALS: BP 147/84
[2019-02-16 23:00] VITALS: BP 152/77
[2019-02-17] MEDS: IV NORMAL SALINE 1000ML BAG 1,000 ML IV SCH ×6 (01:17→22:57)
[2019-02-17 03:00] VITALS: BP_SYST 141; BP_SYST 157; BP_DIAS 65; BP_DIAS 99
[2019-02-17 07:00] VITALS: BP 136/74
[2019-02-17] MEDS: ACETAMINOPHEN 325 MG TABLET. PO PRN ×3 (08:18→21:31)
[2019-02-17] MEDS: APIXABAN 5 MG TABLET. PO SCH ×2 (08:56→21:29)
[2019-02-17] MEDS: amLODIPine BESYLATE 10 MG TABLET PO SCH (08:56)
[2019-02-17 10:22] LABS: BASO % 0 % (0-3); EOS % 0 % (0-3); HEMOGLOBIN 14.1 g/dL (13.0-17.5); LYMPH # 0.7 x10^3/uL (1.0-4.8); LYMPH % 10 % (24-48); MEAN CORPUSCULAR HEMOGLOBIN 29 pg (25-35); MEAN CORPUSCULAR HGB CONC 34 g/dL (31-37); MEAN CORPUSCULAR VOLUME 85 fL (79-100); MONO # 0.5 x10^3/uL (0.0-1.1); MONO % 7 % (0-9); NEUT # 5.7 x10^3/uL (1.8-7.7); NEUT % 82 % (31-73); PLATELET COUNT 152 x10^3/uL (140-400); RED CELL DISTRIBUTION WIDTH 13.5 % (11.5-14.5)
--- NOTE | 2019-02-17 10:56 | PDOC ---
SUBJECTIVE ROS No complaints OBJECTIVE Vital Signs Vital Signs Date Time Temp Pulse Resp B/P (MAP) Pulse Ox O2 Delivery O2 Flow Rate FiO2 02/17/19 10:04 98.7 98.7 02/17/19 08:57 96 136/74 02/17/19 08:00 Room Air 02/17/19 07:00 18 96 I & 0 Intake and Output 02/17/19 07:00 Intake Total 5250 ml Output Total 5775 ml Balance -525 ml Intake Oral 1250 ml IV Total 4000 ml Output Urine Total 5775 ml # Voids 1 PHYSICAL EXAM Physical Exam GENERAL: No apparent distress. HEENT: OM moist NECK: Supple LUNGS: Clear to auscultation HEART: RRR, S1, S2 present. ABDOMEN: Soft, nontender EXTREMITIES: Without edema. NEURO: grossly normal SKIN: He has multiple tattoos No Devries DIAGNOSIS/ASSESSMENT Assessment & Plan Rhabdomyolysis -Improving CK Continue IVF, Good uop Recommend Follow up CK and BMP with PCP in 1 week if dced today Renal Function Cr 1.1 Transaminitis- Improving LFT's Per primary New occlusive brachial thrombus on the left On Eliquis , Hypercoag damon pending COMMENT/RELEVANT DATA Meds Current Medications Medications (Trade) Dose Ordered Sig/Jaciel Start Time Stop Time Status Last Admin Dose Admin Acetaminophen (Tylenol) 650 mg PRN Q6HRS PRN 02/17/19 08:15 02/17/19 08:22 650 MG Amlodipine Besylate (Norvasc) 10 mg DAILY 02/11/19 16:45 02/17/19 08:57 10 MG Apixaban (Eliquis) 5 mg BID 02/20/19 09:00 Clonidine HCl (Catapres) 0.1 mg PRN Q1HR PRN 02/12/19 09:15 Diphenhydramine HCl (Benadryl) 25 mg PRN QHS PRN 02/12/19 09:15 02/17/19 04:44 25 MG Info (Anti-Coagulation Monitoring By Pharmacy) 1 each PRN DAILY PRN 02/13/19 09:45 02/16/19 11:18 1 EACH Naproxen (Naprosyn) 500 mg BID 02/12/19 11:45 02/13/19 09:40 DC 02/13/19 08:50 500 MG Ondansetron HCl (Zofran) 4 mg PRN Q6HRS PRN 02/12/19 09:15 Sodium Chloride 1,000 ml @ 200 mls/hr Q5H 02/11/19 14:30 02/17/19 08:57 200 MLS/HR Lab Laboratory Tests Test 02/17/19 04:15 White Blood Count 7.0 x10^3/uL (4.0-11.0) Red Blood Count 4.80 x10^6/uL (4.30-5.70) Hemoglobin 14.1 g/dL (13.0-17.5) Hematocrit 41.0 % (39.0-53.0) Mean Corpuscular Volume 85 fL (79-100) Mean Corpuscular Hemoglobin 29 pg (25-35) Mean Corpuscular Hemoglobin Concent 34 g/dL (31-37) Red Cell Distribution Width 13.5 % (11.5-14.5) Platelet Count 152 x10^3/uL (140-400) Neutrophils (%) (Auto) 82 % (31-73) Lymphocytes (%) (Auto) 10 % (24-48) Monocytes (%) (Auto) 7 % (0-9) Eosinophils (%) (Auto) 0 % (0-3) Basophils (%) (Auto) 0 % (0-3) Neutrophils # (Auto) 5.7 x10^3/uL (1.8-7.7) Lymphocytes # (Auto) 0.7 x10^3/uL (1.0-4.8) Monocytes # (Auto) 0.5 x10^3/uL (0.0-1.1) Eosinophils # (Auto) 0.0 x10^3/uL (0.0-0.7) Basophils # (Auto) 0.0 x10^3/uL (0.0-0.2) Creatine Kinase 4669 U/L (39-308) Results All relevant outside records, renal labs, imaging studies, telemetry/EKG's were reviewed. REJI ELY MD Feb 17, 2019 10:56
--- NOTE | 2019-02-17 12:27 | PDOC ---
PROGRESS NOTES Chief Complaint Chief Complaint Rhabdomyolysis with CPK greater than 90,000 on admission NEW Occlusive thrombosis left brachial vein - OAC x 3 mos plus Bilateral upper extremity swelling-better with elevation Biceps pain bilateral Weight lifting Hypertension on Norvasc 10 - controlled MIld transaminitis - non alcoholic CONT IVF AND TREND LAB. WOULD LIKE TO SEE CK < 5000 FEVER THIS AM 101F BLOOD CULTURED CXR OK RX ROCEPHIN 1 GM IV Q 24 HRS/// Pending id consult 36 min pt exam, chart review, > 50% History of Present Illness History of Present Illness IV fluids running at 200 mL per hour CPK down to 16K from 30,000 from 90,000 RPT CPK TODAY IS 4669 Good UO US shows NEW LEFT DVT, no priors Hypercoag pending I recommended 3 mos OAC - all on chart - eliquis covered by insurance RENAL held dc saturday, advised lower CPK levels before dcing PLAn: FF up levels today COnt NS 200 ELiquis x 3 mos RPt sono in 2 mos - all on chart NOrvasc - also yoandy med on chart LFTS trending down nicely (non alcoholic) Wait for renal rounds John RN Mars Vitals Vitals Vital Signs Date Time Temp Pulse Resp B/P (MAP) Pulse Ox O2 Delivery O2 Flow Rate FiO2 02/17/19 10:04 98.7 98.7 02/17/19 08:57 96 136/74 02/17/19 08:00 Room Air 02/17/19 07:00 18 96 Physical Exam General: Alert, Oriented X3, Cooperative, No acute distress Heart: Regular rate, Normal S1, Normal S2, No murmurs, Gallops Lungs: Clear Abdomen: Normal bowel sounds, Soft, No tenderness, No hepatosplenomegaly, No masses Extremities: No clubbing, No cyanosis, No edema, Normal pulses, No tenderness/swelling Skin: No rashes, No breakdown, No significant lesion Labs LABS Laboratory Tests Test 02/17/19 04:15 White Blood Count 7.0 x10^3/uL (4.0-11.0) Red Blood Count 4.80 x10^6/uL (4.30-5.70) Hemoglobin 14.1 g/dL (13.0-17.5) Hematocrit 41.0 % (39.0-53.0) Mean Corpuscular Volume 85 fL (79-100) Mean Corpuscular Hemoglobin 29 pg (25-35) Mean Corpuscular Hemoglobin Concent 34 g/dL (31-37) Red Cell Distribution Width 13.5 % (11.5-14.5) Platelet Count 152 x10^3/uL (140-400) Neutrophils (%) (Auto) 82 % (31-73) Lymphocytes (%) (Auto) 10 % (24-48) Monocytes (%) (Auto) 7 % (0-9) Eosinophils (%) (Auto) 0 % (0-3) Basophils (%) (Auto) 0 % (0-3) Neutrophils # (Auto) 5.7 x10^3/uL (1.8-7.7) Lymphocytes # (Auto) 0.7 x10^3/uL (1.0-4.8) Monocytes # (Auto) 0.5 x10^3/uL (0.0-1.1) Eosinophils # (Auto) 0.0 x10^3/uL (0.0-0.7) Basophils # (Auto) 0.0 x10^3/uL (0.0-0.2) Creatine Kinase 4669 U/L (39-308) Assessment and Plan Assessmemt and Plan Problems Medical Problems: (1) Rhabdomyolysis Status: Acute Comment Review of Relevant I have reviewed the following items kt (where applicable) has been applied. Labs Laboratory Tests Test 02/16/19 06:11 02/17/19 04:15 Sodium Level 143 mmol/L (136-145) Potassium Level 3.5 mmol/L (3.5-5.1) Chloride Level 107 mmol/L (98-107) Carbon Dioxide Level 25 mmol/L (21-32) Anion Gap 11 (6-14) Blood Urea Nitrogen 11 mg/dL (8-26) Creatinine 1.1 mg/dL (0.7-1.3) Estimated GFR (Cockcroft-Gault) 98.7 BUN/Creatinine Ratio 10 (6-20) Glucose Level 91 mg/dL (70-99) Calcium Level 8.5 mg/dL (8.5-10.1) Total Bilirubin 0.3 mg/dL (0.2-1.0) Aspartate Amino Transf (AST/SGOT) 178 U/L (15-37) Alanine Aminotransferase (ALT/SGPT) 171 U/L (16-63) Alkaline Phosphatase 82 U/L (46-116) Creatine Kinase 7397 U/L (39-308) 4669 U/L (39-308) Total Protein 7.0 g/dL (6.4-8.2) Albumin 3.2 g/dL (3.4-5.0) Albumin/Globulin Ratio 0.8 (1.0-1.7) White Blood Count 7.0 x10^3/uL (4.0-11.0) Red Blood Count 4.80 x10^6/uL (4.30-5.70) Hemoglobin 14.1 g/dL (13.0-17.5) Hematocrit 41.0 % (39.0-53.0) Mean Corpuscular Volume 85 fL (79-100) Mean Corpuscular Hemoglobin 29 pg (25-35) Mean Corpuscular Hemoglobin Concent 34 g/dL (31-37) Red Cell Distribution Width 13.5 % (11.5-14.5) Platelet Count 152 x10^3/uL (140-400) Neutrophils (%) (Auto) 82 % (31-73) Lymphocytes (%) (Auto) 10 % (24-48) Monocytes (%) (Auto) 7 % (0-9) Eosinophils (%) (Auto) 0 % (0-3) Basophils (%) (Auto) 0 % (0-3) Neutrophils # (Auto) 5.7 x10^3/uL (1.8-7.7) Lymphocytes # (Auto) 0.7 x10^3/uL (1.0-4.8) Monocytes # (Auto) 0.5 x10^3/uL (0.0-1.1) Eosinophils # (Auto) 0.0 x10^3/uL (0.0-0.7) Basophils # (Auto) 0.0 x10^3/uL (0.0-0.2) Laboratory Tests Test 02/17/19 04:15 White Blood Count 7.0 x10^3/uL (4.0-11.0) Red Blood Count 4.80 x10^6/uL (4.30-5.70) Hemoglobin 14.1 g/dL (13.0-17.5) Hematocrit 41.0 % (39.0-53.0) Mean Corpuscular Volume 85 fL (79-100) Mean Corpuscular Hemoglobin 29 pg (25-35) Mean Corpuscular Hemoglobin Concent 34 g/dL (31-37) Red Cell Distribution Width 13.5 % (11.5-14.5) Platelet Count 152 x10^3/uL (140-400) Neutrophils (%) (Auto) 82 % (31-73) Lymphocytes (%) (Auto) 10 % (24-48) Monocytes (%) (Auto) 7 % (0-9) Eosinophils (%) (Auto) 0 % (0-3) Basophils (%) (Auto) 0 % (0-3) Neutrophils # (Auto) 5.7 x10^3/uL (1.8-7.7) Lymphocytes # (Auto) 0.7 x10^3/uL (1.0-4.8) Monocytes # (Auto) 0.5 x10^3/uL (0.0-1.1) Eosinophils # (Auto) 0.0 x10^3/uL (0.0-0.7) Basophils # (Auto) 0.0 x10^3/uL (0.0-0.2) Creatine Kinase 4669 U/L (39-308) Medications Current Medications Sodium Chloride 1,000 ml @ 1,000 mls/hr 1X ONCE IV Last administered on 02/11/19at 13:52; Start 02/11/19 at 14:00; Stop 02/11/19 at 14:59; Status DC Sodium Chloride 1,000 ml @ 1,000 mls/hr 1X ONCE IV Last administered on 02/11/19at 15:00; Start 02/11/19 at 15:00; Stop 02/11/19 at 15:59; Status DC Ondansetron HCl (Zofran) 4 mg PRN Q8HRS PRN IV NAUSEA/VOMITING; Start 02/11/19 at 14:30; Stop 02/12/19 at 09:11; Status DC Acetaminophen (Tylenol) 650 mg PRN Q4HRS PRN PO FEVER; Start 02/11/19 at 14:30; Stop 02/12/19 at 14:29; Status DC Sodium Chloride 1,000 ml @ 1,000 mls/hr 1X ONCE IV Last administered on 02/11/19at 14:30; Start 02/11/19 at 14:30; Stop 02/11/19 at 15:29; Status DC Sodium Chloride 1,000 ml @ 200 mls/hr Q5H IV Last administered on 02/17/19 11:30; Start 02/11/19 at 14:30 Amlodipine Besylate (Norvasc) 10 mg DAILY PO ; Start 02/12/19 at 09:00; Stop 02/12/19 at 09:00; Status DC Amlodipine Besylate (Norvasc) 10 mg DAILY PO Last administered on 02/17/19 08:57; Start 02/11/19 at 16:45 Ondansetron HCl (Zofran) 4 mg PRN Q6HRS PRN IV NAUSEA/VOMITING; Start 02/12/19 at 09:15 Clonidine HCl (Catapres) 0.1 mg PRN Q1HR PRN PO HYPERTENSION; Start 02/12/19 at 09:15 Diphenhydramine HCl (Benadryl) 25 mg PRN QHS PRN PO INSOMNIA Last administered on 02/17/19at 04:44; Start 02/12/19 at 09:15 Naproxen (Naprosyn) 500 mg BID PO Last administered on 02/13/19 08:50; Start 02/12/19 at 11:45; Stop 02/13/19 at 09:40; Status DC Apixaban (Eliquis) 10 mg BID PO Last administered on 02/17/19 08:57; Start 02/13/19 at 10:00; Stop 02/19/19 at 21:01 Info (Anti-Coagulation Monitoring By Pharmacy) 1 each PRN DAILY PRN MC SEE COMMENTS Last administered on 02/16/19at 11:18; Start 02/13/19 at 09:45 Apixaban (Eliquis) 5 mg BID PO ; Start 02/20/19 at 09:00 Acetaminophen (Tylenol) 650 mg PRN Q6HRS PRN PO FEVER Last administered on 02/17/19 08:22; Start 02/17/19 at 08:15 Active Scripts Active Amlodipine Besylate 10 Mg Tablet 10 Mg PO DAILY 30 Days Eliquis (Apixaban) 5 Mg Tablet 10 Mg PO BID 7 Days Eliquis (Apixaban) 5 Mg Tablet 5 Mg PO BID 90 Days Reported No Known Medications Prior To Admisstion (Info) Each 1 Each MC 1X Vitals/I & O Vital Sign - Last 24 Hours 02/16/19 02/16/19 02/16/19 02/17/19 15:09 19:00 23:00 03:00 Temp 98.0 98.9 98.9 99.7 98.0 98.9 98.9 99.7 Pulse 60 73 80 87 Resp 14 18 18 18 B/P (MAP) 138/79 (98) 147/84 (105) 152/77 (102) 157/99 (118) Pulse Ox 99 97 96 98 O2 Delivery Room Air Room Air Room Air 02/17/19 02/17/19 02/17/19 02/17/19 07:00 08:00 08:57 10:04 Temp 101.6 98.7 101.6 98.7 Pulse 96 96 Resp 18 B/P (MAP) 136/74 (94) 136/74 Pulse Ox 96 O2 Delivery Room Air Room Air Intake and Output 02/16/19 02/16/19 02/17/19 15:00 23:00 07:00 Intake Total 1250 ml 3000 ml 1000 ml Output Total 2175 ml 2125 ml 1475 ml Balance -925 ml 875 ml -475 ml SYLVIE OSULLIVAN MD Feb 17, 2019 12:27
[2019-02-17] MEDS ORDERED: cefTRIAXone IV Push 1 GM VIAL. IVP SCH (13:00)
[2019-02-17 13:04] LABS: BILIRUBIN,URINE NEGATIVE (NEG); CLARITY,URINE CLEAR; COLOR,URINE YELLOW; NITRITE,URINE NEGATIVE (NEG); PH,URINE 7.5; PROTEIN,URINE NEGATIVE (NEG-TRACE); UROBILINOGEN,URINE 0.2 mg/dL (0.2 mg/dL)
[2019-02-17 13:16] LABS: BACTERIA,URINE MANY /HPF (0-FEW); SQUAMOUS EPITHELIAL CELL,UR FEW /LPF
[2019-02-17 15:00] VITALS: BP 154/79
--- NOTE | 2019-02-17 15:04 | PDOC ---
Infectious Disease Note Vital Sign Vital Signs Vital Signs Date Time Temp Pulse Resp B/P (MAP) Pulse Ox O2 Delivery O2 Flow Rate FiO2 02/17/19 10:04 98.7 98.7 02/17/19 08:57 96 136/74 02/17/19 08:00 Room Air 02/17/19 07:00 18 96 Labs Lab Laboratory Tests Test 02/17/19 04:15 02/17/19 08:14 02/17/19 12:58 White Blood Count 7.0 x10^3/uL (4.0-11.0) Red Blood Count 4.80 x10^6/uL (4.30-5.70) Hemoglobin 14.1 g/dL (13.0-17.5) Hematocrit 41.0 % (39.0-53.0) Mean Corpuscular Volume 85 fL (79-100) Mean Corpuscular Hemoglobin 29 pg (25-35) Mean Corpuscular Hemoglobin Concent 34 g/dL (31-37) Red Cell Distribution Width 13.5 % (11.5-14.5) Platelet Count 152 x10^3/uL (140-400) Neutrophils (%) (Auto) 82 % (31-73) Lymphocytes (%) (Auto) 10 % (24-48) Monocytes (%) (Auto) 7 % (0-9) Eosinophils (%) (Auto) 0 % (0-3) Basophils (%) (Auto) 0 % (0-3) Neutrophils # (Auto) 5.7 x10^3/uL (1.8-7.7) Lymphocytes # (Auto) 0.7 x10^3/uL (1.0-4.8) Monocytes # (Auto) 0.5 x10^3/uL (0.0-1.1) Eosinophils # (Auto) 0.0 x10^3/uL (0.0-0.7) Basophils # (Auto) 0.0 x10^3/uL (0.0-0.2) Creatine Kinase 4669 U/L (39-308) Urine Collection Type Unknown Urine Color Yellow Urine Clarity Clear Urine pH 7.5 Urine Specific [place] 1.015 Urine Protein Negative mg/dL (NEG-TRACE) Urine Glucose (UA) Negative mg/dL (NEG) Urine Ketones (Stick) Negative mg/dL (NEG) Urine Blood Negative (NEG) Urine Nitrite Negative (NEG) Urine Bilirubin Negative (NEG) Urine Urobilinogen Dipstick 0.2 mg/dL (0.2 mg/dL) Urine Leukocyte Esterase Negative (NEG) Urine RBC 1-2 /HPF (0-2) Urine WBC 5-10 /HPF (0-4) Urine Squamous Epithelial Cells Few /LPF Urine Bacteria Many /HPF (0-FEW) Urine Mucus Slight /LPF Group A Streptococcus Rapid Negative (NEGATIVE) Objective Assessment Fever Occlusive brachial thrombus - Bilateral - confirmed with Radiology Rhabdomyolysis Transaminitis Leukopenia - better - no bug or tick bites Tonsillar exudates Plan Plan of Care Empiric Rocephin f/u cultures and CXR f/u labs Hypercoagulable work-up pending Monitor temp Supportive care Thank you 182142 CXR - clear. No STDs/travel/ history/substance abuse/construction. EBV/CMV/mono/Check procalcitonin. Repeat UE U/S to r/o extension of clots D/c Rocephin and dose Teflaro - Vanc unlikely to achieve levels in his age and avoid Dapto with Rhabdo - F/u blood cults and abd U/S F/u throat cult - could be other strep/staph. Monitor tonsils Attending Co-Sign Attending Co-Sign The patient was seen and interviewed as well as examined at the bedside. The chart was reviewed. The case was discussed. Agree with the plan of care. REVA ONEILL APRN Feb 17, 2019 15:04 JONATHON LEVY MD Feb 17, 2019 15:56
--- NOTE | 2019-02-17 15:29 | RAD ---
EXAM: Chest, single view. HISTORY: Fever. COMPARISON: None. FINDINGS: A frontal view of the chest is obtained. There is no infiltrate, effusion or pneumothorax. The heart is normal in size. IMPRESSION: No acute pulmonary finding. Electronically signed by: Екатерина Nance MD (02/17/2019 3:26 PM) [place] [id number]
--- NOTE | 2019-02-17 15:52 | CONS ---
DATE OF CONSULTATION: 02/17/2019 REFERRING PHYSICIAN: Dr. Pastor. . REASON FOR CONSULTATION: Fever. HISTORY OF PRESENT ILLNESS: The patient is a pleasant 23-year-old male with no significant past medical history, who presented with complaints of bilateral biceps pain, swelling and decreased range of motion of his elbows. He says he used to weight lift pretty regularly, but took a 3-4 month break to help care for his son. He returned to the gym about a week ago. He recalls pushing himself more than what he should have. Two days later, symptoms started. He was found to have a CK level greater than 91,000, which has been improving IV fluids. He also was found to have an occlusive brachial thrombus bilaterally and is treated with Eliquis. He says he was starting to feel better. His strength in both arms was improving and the swelling was going down. However, this morning, he developed a fever of 101.6 with chills and body aches. Cultures were ordered and started on ceftriaxone. ID has been asked to consult for further evaluation. The patient says he is feeling better. He says he got little nauseous during the antibiotic infusion. Denies vomiting or abdominal pain. Denies headache, nasal/sinus congestion or sore throat. Denies cough, shortness of air or chest discomfort. Denies dysuria or difficulty passing his urine. Denies rashes or tick bites. Denies history of STD, travel, service, substance abuse or exposure to construction sites. PAST MEDICAL HISTORY: No significant past medical history. PAST SURGICAL HISTORY: No past surgical history. FAMILY HISTORY: Noncontributory. 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 He is a nonsmoker. Multiple tattoos professionally done. He quit taking protein supplements about six months ago. ALLERGIES: No known drug allergies. MEDICATIONS: Ceftriaxone, Eliquis, Tylenol, Norvasc, ondansetron, Benadryl, clonidine, and IV fluids. REVIEW OF SYSTEMS: Per HPI, otherwise all other review of systems is negative. PHYSICAL EXAMINATION: VITAL SIGNS: Temperature is 98.7, T-max 101.6, blood pressure 136/74, heart rate 96, respiratory rate 18, and pulse oximetry 96% on room air. BMI is 23. GENERAL: The patient is lying down, alert, no apparent distress. HEENT: GABBIE. Oropharynx is pink and moist. Tonsillar exudates. NECK: Supple. LUNGS: Clear to auscultation. HEART: S1, S2. ABDOMEN: Soft and nontender with bowel sounds present. EXTREMITIES: No gross edema or cyanosis. He has good strength and range motion of upper extremities bilaterally. SKIN: Warm to touch. No signs of rash. Multiple tattoos including both arms. NEUROLOGIC: Alert and oriented x 3. LINES: Peripheral IV looks okay. LABORATORY DATA: Today's WBC 7.0 from 3.5, hemoglobin 14.1, and platelets 152,000. Electrolytes are unremarkable. Creatinine 1.1, BUN 11, glucose 91, and total bilirubin 0.3. AST 178 from 507 and ALT 171 from 194. Creatinine kinase was 4669 from 91,555. Albumin is 3.2. Urine toxicology negative. Urinalysis from today showed wbc's 5-10 with many bacteria, few squamous epithelial cells. Group A strep negative. Blood cultures and chest x-ray pending. Hypercoagulopathy worked up pending. IMPRESSION: 1. Fever. 2. Occlusive brachial thrombus, bilaterally. 3. Rhabdomyolysis. 4. Transaminitis. 5. Leukopenia, improved. 6. Tonsillar exudates. PLAN: Recommend changing empiric Rocephin to Teflaro as a therapeutic vancomycin level is unlikely be achieved given his age and Daptomycin should be avoided due to rhabdomyolysis. Will test for EBV, CMV and mono. Check procalcitonin level. Repeat venous ultrasound bilaterally to rule out extension of clots. We will follow up on cultures and abdominal ultrasound. Labs have been ordered for the morning. Monitor temperature. Supportive care. Thank you, Dr. Pastor, for asking us to participate in this patient's care. Should you have further questions or concerns, please call. JONATHON LEVY MD DR: STEFANIA/skye JOB#: [id number] / [id number] TIAN
[2019-02-17] MEDS: ANTI-COAG MONITOR BY PHARMACY. MC PRN (16:12)
[2019-02-17 16:27] LABS: MONONUCLEOSIS PATIENT NEGATIVE (NEGATIVE)
[2019-02-17] MEDS: CEFTAROLINE FOSAMIL 600 MG in IV NORMAL SALINE 250ML 250 ML IV SCH ×2 (16:53→22:57)
[2019-02-17 22:30] VITALS: BP 148/95
[2019-02-18 03:00] VITALS: BP 123/69
[2019-02-18] MEDS: CEFTAROLINE FOSAMIL 600 MG in IV NORMAL SALINE 250ML 250 ML IV SCH ×2 (06:09→13:16)
[2019-02-18] MEDS: IV NORMAL SALINE 1000ML BAG 1,000 ML IV SCH ×2 (06:09→13:17)
[2019-02-18 07:00] VITALS: BP 155/90
--- NOTE | 2019-02-18 08:50 | RAD ---
EXAM: Abdomen sonogram. HISTORY: Fever. Pain. TECHNIQUE: Sonographic imaging of the abdomen was performed. COMPARISON: None. FINDINGS: The liver is normal in size. No focal hepatic lesion is seen. There is a mobile stone within the gallbladder measuring 0.5 cm. The gallbladder is slightly distended. There is no gallbladder wall thickening. The kidneys are normal in size. No solid or cystic renal lesion is seen. There is no hydronephrosis. The pancreas, spleen, aorta and inferior vena cava are unremarkable. The common bile duct is normal in caliber. IMPRESSION: 1. Cholelithiasis. The gallbladder is distended due to the preprandial status of the patient. There are no secondary findings to suggest cholecystitis. 2. Otherwise, unremarkable abdomen sonogram. Electronically signed by: Екатерина Nance MD (02/18/2019 8:48 AM) [id number]
[2019-02-18] MEDS: amLODIPine BESYLATE 10 MG TABLET PO SCH (08:52)
[2019-02-18] MEDS: APIXABAN 5 MG TABLET. PO SCH (08:52)
[2019-02-18 09:01] LABS: BASO % 0 % (0-3); EOS % 1 % (0-3); HEMATOCRIT 39.4 % (39.0-53.0); HEMOGLOBIN 13.4 g/dL (13.0-17.5); LYMPH % 24 % (24-48); MEAN CORPUSCULAR HEMOGLOBIN 29 pg (25-35); MEAN CORPUSCULAR HGB CONC 34 g/dL (31-37); MEAN CORPUSCULAR VOLUME 85 fL (79-100); MONO # 0.6 x10^3/uL (0.0-1.1); MONO % 14 % (0-9); NEUT # 2.4 x10^3/uL (1.8-7.7); NEUT % 60 % (31-73); PLATELET COUNT 136 x10^3/uL (140-400); RED BLOOD COUNT 4.62 x10^6/uL (4.30-5.70); RED CELL DISTRIBUTION WIDTH 14.1 % (11.5-14.5); WHITE BLOOD COUNT 4.1 x10^3/uL (4.0-11.0)
[2019-02-18 09:51] LABS: CALCIUM 8.6 mg/dL (8.5-10.1); CREATININE 1.1 mg/dL (0.7-1.3); GFR 98.7; POTASSIUM 3.9 mmol/L (3.5-5.1)
--- NOTE | 2019-02-18 10:00 | RAD ---
Examination: VENOUS UPPER EXT BILATERAL History: Follow-up of DVT reported on previous venous ultrasound Comparison/Correlation: 02/12/2019 venous duplex ultrasound exam of the upper extremities FINDINGS: Grayscale and Doppler analysis of the right and left upper extremity deep venous system was performed with graded compression and augmentation. The internal jugular, subclavian, axillary, brachial, basilic, cephalic, radial and ulnar veins were assessed. Normal compression of upper arteriovenous structures identified. Slow flow in the left basilic vein noted but compression is noted. There is no evidence of deep venous thrombosis. IMPRESSION: 1. No evidence of upper extremity deep venous thrombosis. Previously reported brachial venous thromboses are not currently seen and may have been artifactual or related to adjacent anatomic structures. Electronically signed by: Rigo Garcia MD (02/18/2019 9:58 AM) [facility]
--- NOTE | 2019-02-18 10:35 | PDOC ---
PROGRESS NOTES Chief Complaint Chief Complaint discharge dx Rhabdomyolysis with CPK greater than 90,000 on admission NEW Occlusive thrombosis left brachial vein - felt to be artifact Bilateral upper extremity swelling-better with elevation Biceps pain bilateral Weight lifting, avoid for present time Hypertension on Norvasc 10 - controlled MIld transaminitis - non alcoholic CONT IVF AND TREND LAB. WOULD LIKE TO SEE CK < 5000 02/17 FEVER THIS AM 89F BLOOD CULTURED CXR OK RX ROCEPHIN 1 GM IV Q 24 HRS/// Pending id consult 02/18 home on augmentin 36 min pt exam d/c planning , chart review, > 50% History of Present Illness History of Present Illness IV fluids running at 200 mL per hour CPK down to 16K from 30,000 from 90,000 RPT CPK TODAY IS 4669 Good UO US shows NEW LEFT DVT, no priors Hypercoag pending I recommended 3 mos OAC - all on chart - eliquis covered by insurance RENAL held dc saturday, advised lower CPK levels before dcing PLAn: FF up levels today COnt NS 200 ELiquis x 3 mos RPt sono in 2 mos - all on chart NOrvasc - also yoandy med on chart LFTS trending down nicely (non alcoholic) Wait for renal rounds John RN Mars Vitals Vitals Vital Signs Date Time Temp Pulse Resp B/P (MAP) Pulse Ox O2 Delivery O2 Flow Rate FiO2 02/18/19 08:52 91 155/90 02/18/19 07:00 98.1 16 96 Room Air 98.1 Physical Exam General: Alert, Oriented X3, Cooperative, No acute distress Heart: Regular rate, Normal S1, Normal S2, No murmurs, Gallops Lungs: Clear Abdomen: Normal bowel sounds, Soft, No tenderness, No hepatosplenomegaly, No masses Extremities: No clubbing, No cyanosis, No edema, Normal pulses, No tenderness/swelling Skin: No rashes, No breakdown, No significant lesion Labs LABS Laboratory Tests Test 02/17/19 12:58 02/18/19 08:35 Group A Streptococcus Rapid Negative (NEGATIVE) White Blood Count 4.1 x10^3/uL (4.0-11.0) Red Blood Count 4.62 x10^6/uL (4.30-5.70) Hemoglobin 13.4 g/dL (13.0-17.5) Hematocrit 39.4 % (39.0-53.0) Mean Corpuscular Volume 85 fL (79-100) Mean Corpuscular Hemoglobin 29 pg (25-35) Mean Corpuscular Hemoglobin Concent 34 g/dL (31-37) Red Cell Distribution Width 14.1 % (11.5-14.5) Platelet Count 136 x10^3/uL (140-400) Neutrophils (%) (Auto) 60 % (31-73) Lymphocytes (%) (Auto) 24 % (24-48) Monocytes (%) (Auto) 14 % (0-9) Eosinophils (%) (Auto) 1 % (0-3) Basophils (%) (Auto) 0 % (0-3) Neutrophils # (Auto) 2.4 x10^3/uL (1.8-7.7) Lymphocytes # (Auto) 1.0 x10^3/uL (1.0-4.8) Monocytes # (Auto) 0.6 x10^3/uL (0.0-1.1) Eosinophils # (Auto) 0.0 x10^3/uL (0.0-0.7) Basophils # (Auto) 0.0 x10^3/uL (0.0-0.2) Sodium Level 141 mmol/L (136-145) Potassium Level 3.9 mmol/L (3.5-5.1) Chloride Level 104 mmol/L (98-107) Carbon Dioxide Level 27 mmol/L (21-32) Anion Gap 10 (6-14) Blood Urea Nitrogen 10 mg/dL (8-26) Creatinine 1.1 mg/dL (0.7-1.3) Estimated GFR (Cockcroft-Gault) 98.7 Glucose Level 136 mg/dL (70-99) Calcium Level 8.6 mg/dL (8.5-10.1) Creatine Kinase 2927 U/L (39-308) Assessment and Plan Assessmemt and Plan Problems Medical Problems: (1) Rhabdomyolysis Status: Acute Comment Review of Relevant I have reviewed the following items kt (where applicable) has been applied. Labs Laboratory Tests Test 02/17/19 04:15 02/17/19 08:14 02/17/19 12:58 02/18/19 08:35 White Blood Count 7.0 x10^3/uL (4.0-11.0) 4.1 x10^3/uL (4.0-11.0) Red Blood Count 4.80 x10^6/uL (4.30-5.70) 4.62 x10^6/uL (4.30-5.70) Hemoglobin 14.1 g/dL (13.0-17.5) 13.4 g/dL (13.0-17.5) Hematocrit 41.0 % (39.0-53.0) 39.4 % (39.0-53.0) Mean Corpuscular Volume 85 fL (79-100) 85 fL (79-100) Mean Corpuscular Hemoglobin 29 pg (25-35) 29 pg (25-35) Mean Corpuscular Hemoglobin Concent 34 g/dL (31-37) 34 g/dL (31-37) Red Cell Distribution Width 13.5 % (11.5-14.5) 14.1 % (11.5-14.5) Platelet Count 152 x10^3/uL (140-400) 136 x10^3/uL (140-400) Neutrophils (%) (Auto) 82 % (31-73) 60 % (31-73) Lymphocytes (%) (Auto) 10 % (24-48) 24 % (24-48) Monocytes (%) (Auto) 7 % (0-9) 14 % (0-9) Eosinophils (%) (Auto) 0 % (0-3) 1 % (0-3) Basophils (%) (Auto) 0 % (0-3) 0 % (0-3) Neutrophils # (Auto) 5.7 x10^3/uL (1.8-7.7) 2.4 x10^3/uL (1.8-7.7) Lymphocytes # (Auto) 0.7 x10^3/uL (1.0-4.8) 1.0 x10^3/uL (1.0-4.8) Monocytes # (Auto) 0.5 x10^3/uL (0.0-1.1) 0.6 x10^3/uL (0.0-1.1) Eosinophils # (Auto) 0.0 x10^3/uL (0.0-0.7) 0.0 x10^3/uL (0.0-0.7) Basophils # (Auto) 0.0 x10^3/uL (0.0-0.2) 0.0 x10^3/uL (0.0-0.2) Creatine Kinase 4669 U/L (39-308) 2927 U/L (39-308) Procalcitonin 0.16 ng/mL (0.00-0.10) Heterophil Agglutinins Negative (NEGATIVE) Urine Collection Type Unknown Urine Color Yellow Urine Clarity Clear Urine pH 7.5 Urine Specific [place] 1.015 Urine Protein Negative mg/dL (NEG-TRACE) Urine Glucose (UA) Negative mg/dL (NEG) Urine Ketones (Stick) Negative mg/dL (NEG) Urine Blood Negative (NEG) Urine Nitrite Negative (NEG) Urine Bilirubin Negative (NEG) Urine Urobilinogen Dipstick 0.2 mg/dL (0.2 mg/dL) Urine Leukocyte Esterase Negative (NEG) Urine RBC 1-2 /HPF (0-2) Urine WBC 5-10 /HPF (0-4) Urine Squamous Epithelial Cells Few /LPF Urine Bacteria Many /HPF (0-FEW) Urine Mucus Slight /LPF Group A Streptococcus Rapid Negative (NEGATIVE) Sodium Level 141 mmol/L (136-145) Potassium Level 3.9 mmol/L (3.5-5.1) Chloride Level 104 mmol/L (98-107) Carbon Dioxide Level 27 mmol/L (21-32) Anion Gap 10 (6-14) Blood Urea Nitrogen 10 mg/dL (8-26) Creatinine 1.1 mg/dL (0.7-1.3) Estimated GFR (Cockcroft-Gault) 98.7 Glucose Level 136 mg/dL (70-99) Calcium Level 8.6 mg/dL (8.5-10.1) Laboratory Tests Test 02/17/19 12:58 02/18/19 08:35 Group A Streptococcus Rapid Negative (NEGATIVE) White Blood Count 4.1 x10^3/uL (4.0-11.0) Red Blood Count 4.62 x10^6/uL (4.30-5.70) Hemoglobin 13.4 g/dL (13.0-17.5) Hematocrit 39.4 % (39.0-53.0) Mean Corpuscular Volume 85 fL (79-100) Mean Corpuscular Hemoglobin 29 pg (25-35) Mean Corpuscular Hemoglobin Concent 34 g/dL (31-37) Red Cell Distribution Width 14.1 % (11.5-14.5) Platelet Count 136 x10^3/uL (140-400) Neutrophils (%) (Auto) 60 % (31-73) Lymphocytes (%) (Auto) 24 % (24-48) Monocytes (%) (Auto) 14 % (0-9) Eosinophils (%) (Auto) 1 % (0-3) Basophils (%) (Auto) 0 % (0-3) Neutrophils # (Auto) 2.4 x10^3/uL (1.8-7.7) Lymphocytes # (Auto) 1.0 x10^3/uL (1.0-4.8) Monocytes # (Auto) 0.6 x10^3/uL (0.0-1.1) Eosinophils # (Auto) 0.0 x10^3/uL (0.0-0.7) Basophils # (Auto) 0.0 x10^3/uL (0.0-0.2) Sodium Level 141 mmol/L (136-145) Potassium Level 3.9 mmol/L (3.5-5.1) Chloride Level 104 mmol/L (98-107) Carbon Dioxide Level 27 mmol/L (21-32) Anion Gap 10 (6-14) Blood Urea Nitrogen 10 mg/dL (8-26) Creatinine 1.1 mg/dL (0.7-1.3) Estimated GFR (Cockcroft-Gault) 98.7 Glucose Level 136 mg/dL (70-99) Calcium Level 8.6 mg/dL (8.5-10.1) Creatine Kinase 2927 U/L (39-308) Microbiology 02/17/19 Blood Culture - Preliminary, Resulted NO GROWTH AFTER 1 DAY Medications Current Medications Sodium Chloride 1,000 ml @ 1,000 mls/hr 1X ONCE IV Last administered on 02/11/19at 13:52; Start 02/11/19 at 14:00; Stop 02/11/19 at 14:59; Status DC Sodium Chloride 1,000 ml @ 1,000 mls/hr 1X ONCE IV Last administered on 01/14 08/02at 15:00; Start 02/11/19 at 15:00; Stop 02/11/19 at 15:59; Status DC Ondansetron HCl (Zofran) 4 mg PRN Q8HRS PRN IV NAUSEA/VOMITING; Start 02/11/19 at 14:30; Stop 02/12/19 at 09:11; Status DC Acetaminophen (Tylenol) 650 mg PRN Q4HRS PRN PO FEVER; Start 02/11/19 at 14:30; Stop 02/12/19 at 14:29; Status DC Sodium Chloride 1,000 ml @ 1,000 mls/hr 1X ONCE IV Last administered on 02/11/19at 14:30; Start 02/11/19 at 14:30; Stop 02/11/19 at 15:29; Status DC Sodium Chloride 1,000 ml @ 200 mls/hr Q5H IV Last administered on 02/18/19at 06:09; Start 02/11/19 at 14:30 Amlodipine Besylate (Norvasc) 10 mg DAILY PO ; Start 02/12/19 at 09:00; Stop 02/12/19 at 09:00; Status DC Amlodipine Besylate (Norvasc) 10 mg DAILY PO Last administered on 02/18/19at 08:52; Start 02/11/19 at 16:45 Ondansetron HCl (Zofran) 4 mg PRN Q6HRS PRN IV NAUSEA/VOMITING; Start 02/12/19 at 09:15 Clonidine HCl (Catapres) 0.1 mg PRN Q1HR PRN PO HYPERTENSION; Start 02/12/19 at 09:15 Diphenhydramine HCl (Benadryl) 25 mg PRN QHS PRN PO INSOMNIA Last administered on 02/17/19at 04:44; Start 02/12/19 at 09:15 Naproxen (Naprosyn) 500 mg BID PO Last administered on 02/13/19at 08:50; Start 02/12/19 at 11:45; Stop 02/13/19 at 09:40; Status DC Apixaban (Eliquis) 10 mg BID PO Last administered on 02/18/19at 08:52; Start 02/13/19 at 10:00; Stop 02/19/19 at 21:01 Info (Anti-Coagulation Monitoring By Pharmacy) 1 each PRN DAILY PRN MC SEE COMMENTS Last administered on 02/17/19at 16:13; Start 02/13/19 at 09:45 Apixaban (Eliquis) 5 mg BID PO ; Start 02/20/19 at 09:00 Acetaminophen (Tylenol) 650 mg PRN Q6HRS PRN PO FEVER Last administered on 02/17/19at 21:31; Start 02/17/19 at 08:15 Ceftriaxone Sodium (Rocephin) 1 gm Q24H IVP Last administered on 02/17/19at 12:55; Start 02/17/19 at 13:00; Stop 02/17/19 at 15:37; Status DC Ceftaroline Fosamil 600 mg/ Sodium Chloride 250 ml @ 250 mls/hr Q8HRS IV Last administered on 02/18/19at 06:09; Start 02/17/19 at 16:00 Active Scripts Active Amlodipine Besylate 10 Mg Tablet 10 Mg PO DAILY 30 Days Eliquis (Apixaban) 5 Mg Tablet 10 Mg PO BID 7 Days Eliquis (Apixaban) 5 Mg Tablet 5 Mg PO BID 90 Days Reported No Known Medications Prior To Admisstion (Info) Each 1 Each MC 1X Vitals/I & O Vital Sign - Last 24 Hours 02/17/19 02/17/19 02/18/19 02/18/19 15:00 22:30 03:00 07:00 Temp 101.3 101.5 98.2 98.1 101.3 101.5 98.2 98.1 Pulse 94 94 78 91 Resp 18 17 18 16 B/P (MAP) 154/79 (104) 148/95 (112) 123/69 (87) 155/90 (111) Pulse Ox 99 95 97 96 O2 Delivery Room Air Room Air Room Air Room Air 02/18/19 08:52 Pulse 91 B/P (MAP) 155/90 Intake and Output 02/17/19 02/17/19 02/18/19 15:00 23:00 07:00 Intake Total 540 ml 1250 ml 1600 ml Output Total 300 ml 2000 ml 1950 ml Balance 240 ml -750 ml -350 ml SYLVIE OSULLIVAN MD Feb 18, 2019 10:35
[2019-02-18 11:00] VITALS: BP 141/89
--- NOTE | 2019-02-18 12:21 | PDOC ---
Infectious Disease Note Subjective Subjective Wants to go home today No further fevers since last night. Tmax 101.6 Throat feels better Denies pain/chills/SOA/N/V/D ROS ROS per HPI Vital Sign Vital Signs Vital Signs Date Time Temp Pulse Resp B/P (MAP) Pulse Ox O2 Delivery O2 Flow Rate FiO2 02/18/19 08:52 91 155/90 02/18/19 07:00 98.1 16 96 Room Air 98.1 Physical Exam PHYSICAL EXAM GENERAL: Sitting in the chair, alert, smiling HEENT: GABBIE. Oropharynx is pink and moist. left side tonsillar exudates. NECK: Supple. LUNGS: Clear to auscultation. HEART: S1, S2. ABDOMEN: Soft and nontender with bowel sounds present. EXTREMITIES: No gross edema or cyanosis. He has good strength and range motion of upper extremities bilaterally. SKIN: Warm to touch. No signs of rash. Multiple tattoos including both arms. NEUROLOGIC: Alert and oriented x 3. PIV Labs Lab Laboratory Tests Test 02/17/19 12:58 02/18/19 08:35 Group A Streptococcus Rapid Negative (NEGATIVE) White Blood Count 4.1 x10^3/uL (4.0-11.0) Red Blood Count 4.62 x10^6/uL (4.30-5.70) Hemoglobin 13.4 g/dL (13.0-17.5) Hematocrit 39.4 % (39.0-53.0) Mean Corpuscular Volume 85 fL (79-100) Mean Corpuscular Hemoglobin 29 pg (25-35) Mean Corpuscular Hemoglobin Concent 34 g/dL (31-37) Red Cell Distribution Width 14.1 % (11.5-14.5) Platelet Count 136 x10^3/uL (140-400) Neutrophils (%) (Auto) 60 % (31-73) Lymphocytes (%) (Auto) 24 % (24-48) Monocytes (%) (Auto) 14 % (0-9) Eosinophils (%) (Auto) 1 % (0-3) Basophils (%) (Auto) 0 % (0-3) Neutrophils # (Auto) 2.4 x10^3/uL (1.8-7.7) Lymphocytes # (Auto) 1.0 x10^3/uL (1.0-4.8) Monocytes # (Auto) 0.6 x10^3/uL (0.0-1.1) Eosinophils # (Auto) 0.0 x10^3/uL (0.0-0.7) Basophils # (Auto) 0.0 x10^3/uL (0.0-0.2) Sodium Level 141 mmol/L (136-145) Potassium Level 3.9 mmol/L (3.5-5.1) Chloride Level 104 mmol/L (98-107) Carbon Dioxide Level 27 mmol/L (21-32) Anion Gap 10 (6-14) Blood Urea Nitrogen 10 mg/dL (8-26) Creatinine 1.1 mg/dL (0.7-1.3) Estimated GFR (Cockcroft-Gault) 98.7 Glucose Level 136 mg/dL (70-99) Calcium Level 8.6 mg/dL (8.5-10.1) Creatine Kinase 2927 U/L (39-308) 02/17. IMPRESSION: 1. No evidence of upper extremity deep venous thrombosis. Previously reported brachial venous thromboses are not currently seen and may have been artifactual or related to adjacent anatomic structures. Micro Microbiology 02/17/19 Blood Culture - Preliminary, Resulted NO GROWTH AFTER 1 DAY Objective Assessment Fever. Procalcitonin 0.16 Occlusive brachial thrombus, bilaterally - confirmed with Radiology. Repeat US neg Rhabdomyolysis - CK trending down Transaminitis Leukopenia - better. no bug or tick bites Tonsillar exudates. mono neg Plan Plan of Care Teflaro EBV/CMV and throat culture pending Hypercoagulable work-up pending Monitor temp Supportive care Had a discussion with Mr. Parks who is stating he is leaving today with discharge or AMA. I explained that I am unsure of the cause of his fevers and he understands. I explained risks of leaving including possible and he understands. I also told him it could be a viral process or a pharyngitis. He states he understands. I offered oral abx for discharge and I again explained that they may not adequately cover whatever maybe causing his fever and he understands but he is leaving. Gave Rx for Augmentin for 10 days and he can f/u in 2 weeks [phone]. If he worsens he needs to seek medical attention D/w and in presence of Nurse Attending Co-Sign Attending Co-Sign The patient was seen and interviewed as well as examined at the bedside. The chart was reviewed. The case was discussed. Agree with the plan of care. REVA ONEILL APRN Feb 18, 2019 12:21 JONATHON LEVY MD Feb 18, 2019 13:23
[2019-02-18 13:55] LABS: ANTITHROMBIN III SEE SEPARATE REPORT; CARDIOLIPIN ANTIBODIES SEE SEPARATE REPORT; LUPUS ANTICOAGULANT SEE SEPARATE REPORT; PROTEIN C ACTIVITY SEE SEPARATE REPORT; PROTEIN S ACTIVITY SEE SEPARATE REPORT
[2019-02-18 14:49] VITALS: BP 122/68
--- NOTE | 2019-02-18 15:17 | PDOC3 ---
Discharge Summary Date of Admission: Feb 11, 2019 Date of Discharge: Feb 18, 2019 Follow-Up: 3-5 days Admitting Diagnosis comment: discharge dx Rhabdomyolysis with CPK greater than 90,000 on admission NEW Occlusive thrombosis left brachial vein - felt to be artifact Bilateral upper extremity swelling-better with elevation Biceps pain bilateral Weight lifting, avoid for present time Hypertension on Norvasc 10 - controlled MIld transaminitis - non alcoholic CONT IVF AND TREND LAB. WOULD LIKE TO SEE CK < 5000 02/17 FEVER THIS AM 101F BLOOD CULTURED CXR OK RX ROCEPHIN 1 GM IV Q 24 HRS/// Pending id consult 02/18 home on augmentin 36 min pt exam d/c planning , chart review, > 50% History of Present Illness History of Present Illness IV fluids running at 200 mL per hour CPK down to 16K from 30,000 from 90,000 RPT CPK TODAY IS 4669 Good UO US shows NEW LEFT DVT, no priors Hypercoag pending I recommended 3 mos OAC - all on chart - eliquis covered by insurance RENAL held dc saturday, advised lower CPK levels before dcing PLAn: FF up levels today COnt NS 200 ELiquis x 3 mos RPt sono in 2 mos - all on chart NOrvasc - also yoandy med on chart LFTS trending down nicely (non alcoholic) Wait for renal rounds John Crews Vitals Vitals Vital Signs Date Time Temp Pulse Resp B/P (MAP) Pulse Ox O2 Delivery O2 Flow Rate FiO2 02/18/19 08:52 91 155/90 02/18/19 07:00 98.1 16 96 Room Air 98.1 Physical Exam General: Alert, Oriented X3, Cooperative, No acute distress Heart: Regular rate, Normal S1, Normal S2, No murmurs, Gallops Lungs: Clear Abdomen: Normal bowel sounds, Soft, No tenderness, No hepatosplenomegaly, No masses Extremities: No clubbing, No cyanosis, No edema, Normal pulses, No tenderness/swelling Skin: No rashes, No breakdown, No significant lesion FINAL DIAGNOSIS Problems Medical Problems: (1) Rhabdomyolysis Status: Acute Brief Hospital Course Mr. Parks is a 23 old [sex] who presented with [ rhabdomyolysis] CONDITION AT DISCHARGE: Improved Discharge Medications Current Medications Sodium Chloride 1,000 ml @ 1,000 mls/hr 1X ONCE IV Last administered on 02/11/19at 13:52; Start 02/11/19 at 14:00; Stop 02/11/19 at 14:59; Status DC Sodium Chloride 1,000 ml @ 1,000 mls/hr 1X ONCE IV Last administered on 02/11/19at 15:00; Start 02/11/19 at 15:00; Stop 02/11/19 at 15:59; Status DC Ondansetron HCl (Zofran) 4 mg PRN Q8HRS PRN IV NAUSEA/VOMITING; Start 02/11/19 at 14:30; Stop 02/12/19 at 09:11; Status DC Acetaminophen (Tylenol) 650 mg PRN Q4HRS PRN PO FEVER; Start 02/11/19 at 14:30; Stop 02/12/19 at 14:29; Status DC Sodium Chloride 1,000 ml @ 1,000 mls/hr 1X ONCE IV Last administered on 01/14 08/02at 14:30; Start 02/11/19 at 14:30; Stop 02/11/19 at 15:29; Status DC Sodium Chloride 1,000 ml @ 200 mls/hr Q5H IV Last administered on 02/18/19at 13:17; Start 02/11/19 at 14:30 Amlodipine Besylate (Norvasc) 10 mg DAILY PO ; Start 02/12/19 at 09:00; Stop 02/12/19 at 09:00; Status DC Amlodipine Besylate (Norvasc) 10 mg DAILY PO Last administered on 02/18/19at 08:52; Start 02/11/19 at 16:45 Ondansetron HCl (Zofran) 4 mg PRN Q6HRS PRN IV NAUSEA/VOMITING; Start 02/12/19 at 09:15 Clonidine HCl (Catapres) 0.1 mg PRN Q1HR PRN PO HYPERTENSION; Start 02/12/19 at 09:15 Diphenhydramine HCl (Benadryl) 25 mg PRN QHS PRN PO INSOMNIA Last administered on 02/17/19at 04:44; Start 02/12/19 at 09:15 Naproxen (Naprosyn) 500 mg BID PO Last administered on 02/13/19at 08:50; Start 02/12/19 at 11:45; Stop 02/13/19 at 09:40; Status DC Apixaban (Eliquis) 10 mg BID PO Last administered on 02/18/19at 08:52; Start 02/13/19 at 10:00; Stop 02/19/19 at 21:01 Info (Anti-Coagulation Monitoring By Pharmacy) 1 each PRN DAILY PRN MC SEE COMMENTS Last administered on 02/17/19at 16:13; Start 02/13/19 at 09:45 Apixaban (Eliquis) 5 mg BID PO ; Start 02/20/19 at 09:00 Acetaminophen (Tylenol) 650 mg PRN Q6HRS PRN PO FEVER Last administered on 02/17/19at 21:31; Start 02/17/19 at 08:15 Ceftriaxone Sodium (Rocephin) 1 gm Q24H IVP Last administered on 02/17/19at 12:55; Start 02/17/19 at 13:00; Stop 02/17/19 at 15:37; Status DC Ceftaroline Fosamil 600 mg/ Sodium Chloride 250 ml @ 250 mls/hr Q8HRS IV Last administered on 02/18/19at 13:17; Start 02/17/19 at 16:00 Active Scripts Active Amlodipine Besylate 10 Mg Tablet 10 Mg PO DAILY 30 Days Eliquis (Apixaban) 5 Mg Tablet 10 Mg PO BID 7 Days Eliquis (Apixaban) 5 Mg Tablet 5 Mg PO BID 90 Days Reported No Known Medications Prior To Admisstion (Info) Each 1 Each MC 1X Vital Signs Vital Signs Date Time Temp Pulse Resp B/P (MAP) Pulse Ox O2 Delivery O2 Flow Rate FiO2 02/18/19 14:49 98.3 74 18 122/68 (86) 98 Room Air 98.3 Labs Laboratory Tests Test 02/17/19 04:15 02/17/19 08:14 02/17/19 12:58 02/18/19 08:35 White Blood Count 7.0 x10^3/uL (4.0-11.0) 4.1 x10^3/uL (4.0-11.0) Red Blood Count 4.80 x10^6/uL (4.30-5.70) 4.62 x10^6/uL (4.30-5.70) Hemoglobin 14.1 g/dL (13.0-17.5) 13.4 g/dL (13.0-17.5) Hematocrit 41.0 % (39.0-53.0) 39.4 % (39.0-53.0) Mean Corpuscular Volume 85 fL (79-100) 85 fL (79-100) Mean Corpuscular Hemoglobin 29 pg (25-35) 29 pg (25-35) Mean Corpuscular Hemoglobin Concent 34 g/dL (31-37) 34 g/dL (31-37) Red Cell Distribution Width 13.5 % (11.5-14.5) 14.1 % (11.5-14.5) Platelet Count 152 x10^3/uL (140-400) 136 x10^3/uL (140-400) Neutrophils (%) (Auto) 82 % (31-73) 60 % (31-73) Lymphocytes (%) (Auto) 10 % (24-48) 24 % (24-48) Monocytes (%) (Auto) 7 % (0-9) 14 % (0-9) Eosinophils (%) (Auto) 0 % (0-3) 1 % (0-3) Basophils (%) (Auto) 0 % (0-3) 0 % (0-3) Neutrophils # (Auto) 5.7 x10^3/uL (1.8-7.7) 2.4 x10^3/uL (1.8-7.7) Lymphocytes # (Auto) 0.7 x10^3/uL (1.0-4.8) 1.0 x10^3/uL (1.0-4.8) Monocytes # (Auto) 0.5 x10^3/uL (0.0-1.1) 0.6 x10^3/uL (0.0-1.1) Eosinophils # (Auto) 0.0 x10^3/uL (0.0-0.7) 0.0 x10^3/uL (0.0-0.7) Basophils # (Auto) 0.0 x10^3/uL (0.0-0.2) 0.0 x10^3/uL (0.0-0.2) Creatine Kinase 4669 U/L (39-308) 2927 U/L (39-308) Procalcitonin 0.16 ng/mL (0.00-0.10) Heterophil Agglutinins Negative (NEGATIVE) Urine Collection Type Unknown Urine Color Yellow Urine Clarity Clear Urine pH 7.5 Urine Specific [place] 1.015 Urine Protein Negative mg/dL (NEG-TRACE) Urine Glucose (UA) Negative mg/dL (NEG) Urine Ketones (Stick) Negative mg/dL (NEG) Urine Blood Negative (NEG) Urine Nitrite Negative (NEG) Urine Bilirubin Negative (NEG) Urine Urobilinogen Dipstick 0.2 mg/dL (0.2 mg/dL) Urine Leukocyte Esterase Negative (NEG) Urine RBC 1-2 /HPF (0-2) Urine WBC 5-10 /HPF (0-4) Urine Squamous Epithelial Cells Few /LPF Urine Bacteria Many /HPF (0-FEW) Urine Mucus Slight /LPF Group A Streptococcus Rapid Negative (NEGATIVE) Sodium Level 141 mmol/L (136-145) Potassium Level 3.9 mmol/L (3.5-5.1) Chloride Level 104 mmol/L (98-107) Carbon Dioxide Level 27 mmol/L (21-32) Anion Gap 10 (6-14) Blood Urea Nitrogen 10 mg/dL (8-26) Creatinine 1.1 mg/dL (0.7-1.3) Estimated GFR (Cockcroft-Gault) 98.7 Glucose Level 136 mg/dL (70-99) Calcium Level 8.6 mg/dL (8.5-10.1) Laboratory Tests Test 02/18/19 08:35 White Blood Count 4.1 x10^3/uL (4.0-11.0) Red Blood Count 4.62 x10^6/uL (4.30-5.70) Hemoglobin 13.4 g/dL (13.0-17.5) Hematocrit 39.4 % (39.0-53.0) Mean Corpuscular Volume 85 fL (79-100) Mean Corpuscular Hemoglobin 29 pg (25-35) Mean Corpuscular Hemoglobin Concent 34 g/dL (31-37) Red Cell Distribution Width 14.1 % (11.5-14.5) Platelet Count 136 x10^3/uL (140-400) Neutrophils (%) (Auto) 60 % (31-73) Lymphocytes (%) (Auto) 24 % (24-48) Monocytes (%) (Auto) 14 % (0-9) Eosinophils (%) (Auto) 1 % (0-3) Basophils (%) (Auto) 0 % (0-3) Neutrophils # (Auto) 2.4 x10^3/uL (1.8-7.7) Lymphocytes # (Auto) 1.0 x10^3/uL (1.0-4.8) Monocytes # (Auto) 0.6 x10^3/uL (0.0-1.1) Eosinophils # (Auto) 0.0 x10^3/uL (0.0-0.7) Basophils # (Auto) 0.0 x10^3/uL (0.0-0.2) Sodium Level 141 mmol/L (136-145) Potassium Level 3.9 mmol/L (3.5-5.1) Chloride Level 104 mmol/L (98-107) Carbon Dioxide Level 27 mmol/L (21-32) Anion Gap 10 (6-14) Blood Urea Nitrogen 10 mg/dL (8-26) Creatinine 1.1 mg/dL (0.7-1.3) Estimated GFR (Cockcroft-Gault) 98.7 Glucose Level 136 mg/dL (70-99) Calcium Level 8.6 mg/dL (8.5-10.1) Creatine Kinase 2927 U/L (39-308) Allergies Allergies Coded Allergies Type Severity Reaction Last Updated Verified No Known Drug Allergies 09/15/15 No Disposition/Orders: D/C to Home Patient Instructions d/c planning 36 min SYLVIE OSULLIVAN MD Feb 18, 2019 15:17
[2019-02-18] MEDS ORDERED: AMOX1TAB58 PO (15:18)
--- NOTE | 2019-02-18 15:19 | DISCH ---
DISCHARGE INSTRUCTIONS Condition on Discharge Condition on Discharge: Stable Activity After Discharge Activity Instructions for Disc: Activity as tolerated Lifting Instructions after Dis: No heavy lifting, No pulling or pushing Driving Instructions after Dis: Do not drive today Weight Bearing Status after Di: As tolerated Diet after Discharge Diet after Discharge: Regular Liquid Texture: Thin Liquid Checks after Discharge Checks after discharge: Check blood press - daily Contacting the DR. after DC Call your doctor for: If your condition worsens SYLVIE OSULLIVAN MD Feb 18, 2019 15:19
--- NOTE | 2019-02-18 15:50 | PDOC ---
SUBJECTIVE ROS last night. Tmax 101.6 OBJECTIVE Vital Signs Vital Signs Date Time Temp Pulse Resp B/P (MAP) Pulse Ox O2 Delivery O2 Flow Rate FiO2 02/18/19 14:49 98.3 74 18 122/68 (86) 98 Room Air 98.3 I & 0 Intake and Output 02/18/19 07:00 Intake Total 3390 ml Output Total 4250 ml Balance -860 ml Intake Oral 890 ml IV Total 2500 ml Output Urine Total 4250 ml PHYSICAL EXAM Physical Exam GENERAL: No apparent distress. HEENT: OM moist NECK: Supple LUNGS: Clear to auscultation HEART: RRR, S1, S2 present. ABDOMEN: Soft, nontender EXTREMITIES: Without edema. NEURO: grossly normal SKIN: He has multiple tattoos No [place] DIAGNOSIS/ASSESSMENT Assessment & Plan Rhabdomyolysis -Improving CK Continue IVF, Good uop Renal Function Cr 1.1 Transaminitis- Improving LFT's Per primary New occlusive brachial thrombus on the left On Eliquis , Hypercoag damon pending Fever- last nigh ID following Dc per primary , we will sign off COMMENT/RELEVANT DATA Meds Current Medications Medications (Trade) Dose Ordered Sig/Jaciel Start Time Stop Time Status Last Admin Dose Admin Acetaminophen (Tylenol) 650 mg PRN Q6HRS PRN 02/17/19 08:15 02/17/19 21:31 650 MG Amlodipine Besylate (Norvasc) 10 mg DAILY 02/11/19 16:45 02/18/19 08:52 10 MG Apixaban (Eliquis) 5 mg BID 02/20/19 09:00 Ceftaroline Fosamil 600 mg/ Sodium Chloride 250 ml @ 250 mls/hr Q8HRS 02/17/19 16:00 02/18/19 13:17 250 MLS/HR Ceftriaxone Sodium (Rocephin) 1 gm Q24H 02/17/19 13:00 02/17/19 15:37 DC 02/17/19 12:55 1 GM Clonidine HCl (Catapres) 0.1 mg PRN Q1HR PRN 02/12/19 09:15 Diphenhydramine HCl (Benadryl) 25 mg PRN QHS PRN 02/12/19 09:15 02/17/19 04:44 25 MG Info (Anti-Coagulation Monitoring By Pharmacy) 1 each PRN DAILY PRN 02/13/19 09:45 02/17/19 16:13 1 EACH Naproxen (Naprosyn) 500 mg BID 02/12/19 11:45 02/13/19 09:40 DC 02/13/19 08:50 500 MG Ondansetron HCl (Zofran) 4 mg PRN Q6HRS PRN 02/12/19 09:15 Sodium Chloride 1,000 ml @ 200 mls/hr Q5H 02/11/19 14:30 02/18/19 13:17 200 MLS/HR Lab Laboratory Tests Test 02/18/19 08:35 White Blood Count 4.1 x10^3/uL (4.0-11.0) Red Blood Count 4.62 x10^6/uL (4.30-5.70) Hemoglobin 13.4 g/dL (13.0-17.5) Hematocrit 39.4 % (39.0-53.0) Mean Corpuscular Volume 85 fL (79-100) Mean Corpuscular Hemoglobin 29 pg (25-35) Mean Corpuscular Hemoglobin Concent 34 g/dL (31-37) Red Cell Distribution Width 14.1 % (11.5-14.5) Platelet Count 136 x10^3/uL (140-400) Neutrophils (%) (Auto) 60 % (31-73) Lymphocytes (%) (Auto) 24 % (24-48) Monocytes (%) (Auto) 14 % (0-9) Eosinophils (%) (Auto) 1 % (0-3) Basophils (%) (Auto) 0 % (0-3) Neutrophils # (Auto) 2.4 x10^3/uL (1.8-7.7) Lymphocytes # (Auto) 1.0 x10^3/uL (1.0-4.8) Monocytes # (Auto) 0.6 x10^3/uL (0.0-1.1) Eosinophils # (Auto) 0.0 x10^3/uL (0.0-0.7) Basophils # (Auto) 0.0 x10^3/uL (0.0-0.2) Sodium Level 141 mmol/L (136-145) Potassium Level 3.9 mmol/L (3.5-5.1) Chloride Level 104 mmol/L (98-107) Carbon Dioxide Level 27 mmol/L (21-32) Anion Gap 10 (6-14) Blood Urea Nitrogen 10 mg/dL (8-26) Creatinine 1.1 mg/dL (0.7-1.3) Estimated GFR (Cockcroft-Gault) 98.7 Glucose Level 136 mg/dL (70-99) Calcium Level 8.6 mg/dL (8.5-10.1) Creatine Kinase 2927 U/L (39-308) Results All relevant outside records, renal labs, imaging studies, telemetry/EKG's were reviewed. REJI ELY MD Feb 18, 2019 15:50
--- NOTE | 2019-02-18 16:43 | NUR ---
Discharge Note: PT DISCHARGED HOME WITH SELF CARE. PT LEFT FACILITY VIA PRIVATE VEHICLE ACCOMPANIED BY HIMSELF. PT STABLE AND ALERT UPOND DISCHARGE. PT PIV REMOVED FROM L HAND WITHOUT COMPLICATIONS. PT EDUCATED ABOUT DISCHARGE INSTRUCTIONS, DISCHARGE MEDICATIONS, FOLLOW-UP INSTRUCTIONS, AND WORSENING SYMPTOMS. PT VOICED NO CONCERNS AT THIS TIME. ROSALBA BLACK Discharge instructions and discharge home medications reviewed with Patient and a copy given. All questions have been answered and understanding verbalized.
[2019-02-20] MEDS ORDERED: APIXABAN 5 MG TABLET. PO SCH (09:00)
== END 2019-02-18 16:46 | disposition home or self-care (01) | DRG 558 ==
LOC: ER 10:00 → 5 SOUTH 13:44
PROVIDERS: ADMIT Internal Medicine; ATTEND Internal Medicine
DX: M62.82 Rhabdomyolysis (principal); I10 Essential (primary) hypertension; Z82.49 Family history of ischemic heart disease and other diseases of the circulatory system; D72.819 Decreased white blood cell count, unspecified; Z79.899 Other long term (current) drug therapy
CPT/HCPCS: 36415; 71045; 76700; 80048; 80053; 80076; 80307; 81001; 82550; 82553; 84145; 85025; 85300; 85302; 85306; 85610; 86147; 86308; 86644; 86645; 86663; 86664; 87040; 87070; 87086; 87880; 93970; J0696; J0712; J7030; J7050; Q0163; 99285-25; G0378